=== PATIENT | female | born 1960 | race Caucasian/White ===

== ENCOUNTER 2022-06-20 08:50 | Outpatient (REF) | payer MEDICARE, SELFPAY ==
--- NOTE | ~2022-06-20 | XR_ITS ---
EXAMINATION: XR THORACOLUMBAR SPINE CLINICAL INFORMATION: M54.6 - Pain in thoracic spine COMPARISON: Chest radiographs 03/20/2007. TECHNIQUE: Thoracic spine is imaged in 3 views. FINDINGS: There are 11 rib pairs demonstrated. The 12 ribs are likely hypoplastic. There is normal thoracic kyphosis. There is a gentle levocurvature lower thoracic spine and borderline dextrocurvature midthoracic line. There is no thoracic vertebral compression, spondylolisthesis, or destructive process. No paraspinal soft tissue swelling. There are multilevel degenerative disc changes with disc narrowing and multilevel thoracic vertebral body spurring. There are also degenerative changes noted cervical spine with disc narrowing C4-C5 and C5-C6. Visualized lungs are clear. There is gastric lap band seen upper abdomen. XR/XR thoracic spine 2V IMPRESSION: -Multilevel thoracic degenerative disc changes. -No thoracic vertebral compression or spondylolisthesis or destructive process. -Degenerative disc changes cervical spine, C4-C5 and C5-C6.
[2022-06-20 11:25] LABS: Basophils Percent Auto 0.3 % (0-2); Eosinophils Absolute Auto 0.1 X10*3/uL (0.0-0.4); Eosinophils Percent Auto 0.8 % (0-4); Hematocrit 43.2 % (37.0-47.0); Hemoglobin 14.5 g/dl (12.0-16.0); Imm Gran Abs Auto 0.01 X10*3/uL (0.00-0.03); Imm Gran Pct Auto 0.2 % (0.0-0.4); Lymphocytes Absolute Auto 1.5 X10*3/uL (1.2-4.9); Lymphocytes Percent Auto 22.7 % (20-40); MANUAL DIFF FLAG NO; Mean Corpuscular HGB Conc 33.6 g/dl (31.0-35.0); Mean Corpuscular Hemoglobin 30.2 pg (27.0-33.0); Monocytes Absolute Auto 0.5 X10*3/uL (0.1-1.2); Monocytes Percent Auto 7.8 % (2-11); Neutrophils Absolute Auto 4.4 x10*3/uL (2.0-8.3); Neutrophils Percent Auto 68.2 % (45-73); Platelet Count 279 X10*3/uL (160-400); White Blood Count 6.4 X10*3/uL (4.8-10.8)
[2022-06-20 11:49] LABS: Alanine Aminotransferase 30 U/L (0-31); Albumin Level 4.3 g/dL (3.5-5.0); Alkaline Phosphatase 59 U/L (39-117); Anion Gap 17 (12-20); Aspartate Amino Transferase 21 U/L (5-31); Bilirubin Direct 0.2 mg/dL (0.0-0.5); Bilirubin Total 0.6 mg/dL (0.0-1.0); Blood Urea Nitrogen 11 mg/dL (9-16); Calcium 9.6 mg/dL (8.4-10.2); Carbon Dioxide 22 mmol/L (22-29); Chloride 107 mmol/L (96-108); Estimated Glomerular Filt Rate > 60; Glucose Random 103 mg/dL (60-115); Potassium 4.2 mmol/L (3.3-5.1); Sodium 142 mmol/L (135-145); Total Protein 7.1 g/dL (6.5-8.0)
== END 2022-06-20 08:51 | disposition home or self-care (01) ==
LOC: HO.HMGCX 08:50
PROVIDERS: PCP Internal Medicine; Visit Provider Nurse Practitioner Family
DX: M54.6 Pain in thoracic spine (principal); R10.11 Right upper quadrant pain
CPT/HCPCS: 36415; 72070; 80048; 80076; 85025

== ENCOUNTER 2022-12-19 08:20 | Outpatient (REF) | payer MEDICARE, SELFPAY ==
--- NOTE | ~2022-12-19 | XR_ITS ---
EXAMINATION: XR SHOULDER, RIGHT CLINICAL INFORMATION: Sprain of shoulder joint COMPARISON: None available. TECHNIQUE: Three views of the right shoulder. FINDINGS: Mild degenerative changes are present at the glenohumeral joint. Calcification is seen in the supraspinatus tendon. No fractures or dislocations are seen. XR/XR shoulder RT min 2V IMPRESSION: Mild degenerative changes with calcification in the supraspinatus tendon. No evidence of an acute traumatic osseous injury.
== END 2022-12-19 08:21 | disposition home or self-care (01) ==
LOC: HO.HMGCX 08:20
PROVIDERS: PCP Internal Medicine; Visit Provider Internal Medicine
DX: S43.401A Unspecified sprain of right shoulder joint, initial encounter (principal)
CPT/HCPCS: 73030

== ENCOUNTER 2023-02-14 11:28 | Outpatient (REF) | payer MEDICARE, SELFPAY ==
--- NOTE | ~2023-02-14 | MM_ITS ---
EXAMINATION: MM SCREENING DIGITAL BREAST TOMOSYNTHESIS, BILATERAL CLINICAL INFORMATION: Screening. Asymptomatic. The lifetime risk of breast cancer based on the Tyrer-Cuzick Model is 8%. COMPARISON: Outside mammography: 10/04/2019, 09/21/2020, 10/05/2019, 09/18/2019 ([facility]). TECHNIQUE: Digital breast tomosynthesis is performed in both the craniocaudal and mediolateral oblique views along with computer-aided detection (CAD). Synthesized 2D images are generated from the tomosynthesis. FINDINGS: There are scattered areas of fibroglandular density (ACR BI-RADS breast composition Category b). Breast tissue composition borders on predominantly fatty. Background stromal markings are normal. No developing density or architectural abnormality. There are no significant masses, abnormal calcifications, or other abnormalities. The axilla and skin contours are unremarkable. MM/MM tomosynthesis screening BI IMPRESSION: No mammographic evidence of malignancy. ASSESSMENT: BI-RADS 1: Negative RECOMMENDATION: Routine annual mammography screening. This patient's information was entered into a reminder system with a target due date for their next mammogram.
== END 2023-02-14 11:29 | disposition home or self-care (01) ==
LOC: HO.MAMMO 11:28
PROVIDERS: PCP Internal Medicine; Visit Provider Internal Medicine
DX: Z12.31 Encounter for screening mammogram for malignant neoplasm of breast (principal)
CPT/HCPCS: 77063; 77067

== ENCOUNTER 2023-03-29 07:48 | Outpatient (REF) | payer MEDICARE, SELFPAY | END 2023-03-29 07:49 | disposition home or self-care (01) | LOC: HO.HMGCLDS 07:48 | PROVIDERS: PCP Internal Medicine; Visit Provider Internal Medicine | DX: E03.9 Hypothyroidism, unspecified (principal); E55.9 Vitamin D deficiency, unspecified; E66.3 Overweight; R03.0 Elevated blood-pressure reading, without diagnosis of hypertension | CPT/HCPCS: 36415; 80053; 80061; 82306; 84439; 84443; 85025 ==

== ENCOUNTER 2023-05-09 12:25 | Outpatient (AMB) | payer MEDICARE, SELFPAY ==
[2023-05-09 12:32] VITALS: BP 136/68; PULSE 89; O2SAT 98; BMI 37.3
--- NOTE | 2023-05-09 12:32 | MHC.PC.OV ---
Vital Signs 05/09/23 12:32 05/09/23 13:23 Height 5 ft 6 in Weight 231 lb BMI 37.3 BP 136/68 125/75 Blood Pressure Location Lt brachial Rt brachial Position Sitting Sitting Pulse 89 Pulse Source Pulse Oximeter Pulse Oximetry (%) 98 Oxygen Delivery Method Room Air Intake Visit Reasons: 6 week follow up HTN Intake Note: Pt is here today for 6 weeks follow up visit on HTN. Allergies naproxen Adverse Reaction (Verified 05/09/23 12:34) uclers sumatriptan [From Imitrex] Adverse Reaction (Verified 05/09/23 12:34) cluster migraine Medication List - Last Reconciled 05/09/23 by Di Mccarty MD levothyroxine 25 mcg PO DAILY meloxicam 15 mg PO DAILY PRN olmesartan 5 mg PO DAILY tramadol 50 mg PO Q12H PRN Tobacco use date assessed: 03/28/23 HPI 6 week follow up HTN HPI Details Patient presents for the follow-up on hypertension hypothyroidism, stable on current medications. PFSH Surgical History H/O wrist surgery Hx of laparoscopic gastric banding Hx of tonsillectomy Family History Father No problems noted. Mother Heart attack Dementia Diabetes Social History Household Members Other:: lives with 3 roomates, , on disability for lower back pain, Housing: House Patient Tobacco Use Status: Never used Tobacco Current occupational status: disabled Cognitive needs: No Hearing needs: No Vision needs: Yes Questionnaire Thrive Questionnaire Date Thrive assessed: 01/03/23 RICKY-7 AMB Questionnaire RICKY-7 Date RICKY - 7 assessed: 01/03/23 Source: Developed by Drs. Denzel Bueno, Joanna Drew, Tristen Porter and colleagues, with an educational little from [employer]. Review of Systems Const All systems reviewed & are unremarkable except as noted in HPI and below Reports no additional complaints Eyes Reports no additional complaints ENT Reports no additional complaints Card Reports no additional complaints Resp Reports no additional complaints GI Reports no additional complaints Physical exam (Primary Care) Vital Signs: Last Vital Signs Pulse 89 05/09/23 12:32 BP 136/68 08/17/23 12:32 Pulse Ox 98 05/09/23 12:32 Oxygen Delivery Method Room Air 05/09/23 12:32 BMI result Body Mass Index 37.3 Tobacco/Smoking Status: Tobacco use Status Tobacco use date assessed 03/28/23 05/09/23 12:36 Patient Tobacco Use Status Never used Tobacco 05/09/23 12:36 Thrive Assessment: Date of Thrive Assessment Date Thrive assessed 01/03/23 05/09/23 12:36 Const General: no acute distress Eyes General: appearance normal, both eyes and all related structures Resp Effort & Inspection: normal respiratory effort Auscultation: clear to auscultation bilaterally Cardio Rhythm: regular rhythm Heart sounds: S1 normal heart sound present and S2 normal heart sound present Assessment and Plan Assessment & Plan (1) Hypothyroidism: Code(s): E03.9 - Hypothyroidism, unspecified Plan: Continue levothyroxine check TSH today (2) Hypertension: Code(s): I10 - Essential (primary) hypertension Plan: Continue olmesartan low-sodium diet regular exercise and follow-up in 3 months Orders: Orders Basic Metabolic Panel Today E03.9 - Hypothyroidism, unspecified TSH reflex Free T4 Today E03.9 - Hypothyroidism, unspecified Coding Level of Care Code Est Pt Level 3 (00950) Diagnoses Hypothyroidism E03.9 Hypertension I10
[2023-05-09 13:23] VITALS: BP 125/75
== END 2023-05-09 13:25 | disposition home or self-care (01) ==
LOC: HO.HMGC 12:26
PROVIDERS: PCP Internal Medicine; Visit Provider Internal Medicine
DX: E03.9 Hypothyroidism, unspecified (principal); I10 Essential (primary) hypertension
CPT/HCPCS: 99213

== ENCOUNTER 2023-05-09 13:26 | Outpatient (REF) | payer MEDICARE, SELFPAY ==
[2023-05-09 16:43] LABS: Anion Gap 12 (12-20); Blood Urea Nitrogen 14 mg/dL (9-16); Calcium 9.3 mg/dL (8.4-10.2); Carbon Dioxide 25 mmol/L (22-29); Chloride 112 mmol/L (96-108); Estimated Glomerular Filt Rate 52; Glucose Random 96 mg/dL (60-115); Sodium 145 mmol/L (135-145)
[2023-05-09 17:01] LABS: TSH reflex Free T4 2.02 uIU/mL (0.32-4.0)
== END 2023-05-09 13:27 | disposition home or self-care (01) ==
LOC: HO.HMGCLDS 13:26
PROVIDERS: PCP Internal Medicine; Visit Provider Internal Medicine
DX: E03.9 Hypothyroidism, unspecified (principal)
CPT/HCPCS: 36415; 80048; 84443

== ENCOUNTER 2023-07-12 08:37 | Outpatient (AMB) | payer MEDICARE, SELFPAY ==
[2023-07-12 08:38] VITALS: BP 128/62; PULSE 84; O2SAT 97; BMI 37.5
--- NOTE | 2023-07-12 08:38 | A.OFFPC_ITS ---
Vital Signs 07/12/23 08:38 Height 5 ft 6 in Weight 232 lb 4 oz BMI 37.5 BP 128/62 Blood Pressure Location Lt brachial Position Sitting Pulse 84 Pulse Source Pulse Oximeter Pulse Oximetry (%) 97 Oxygen Delivery Method Room Air Intake Visit Reasons: BP Check Allergies naproxen Adverse Reaction (Verified 07/12/23 08:40) uclers sumatriptan [From Imitrex] Adverse Reaction (Verified 07/12/23 08:40) cluster migraine Medication List - Last Reconciled 07/12/23 by Bonnie Lerma MD levothyroxine 25 mcg PO DAILY meloxicam 15 mg PO DAILY PRN olmesartan 5 mg PO DAILY tramadol 50 mg PO Q12H PRN Tobacco use date assessed: 07/12/23 Fall risk assessment: 1 Fall in past year Last assessed Fall Risk: 07/12/23 Dental Screening Dental Screen Date: 07/12/23 Did you have a dental visit in the last 12 months?: No Did you have a dental problem in the last 6 months where you did not have access to dental care?: No Was dental information given to patient?: Patient has dentist HPI BP Check HPI Details 63-year-old female came in today with co nczenia of her blood pressure She is on olmesartan 5 mg, tolerating medications, no side effects Patient donate plasma 2 times a week, last time she was there her blood pressure was 150 with heart rate of 106 so she could not donate She got worried and came in for blood pressure check. Patient says that she is concerned that she might have stroke if her blood pressure is very high. She did bought a blood pressure monitor which was not working properly so she returned it. Currently patient does not have a monitor at home. She does have appointment with primary care coming up next month. Last time patient had labs was March, reviewed with the patient. At this time I have reassured patient that her blood pressure is within normal limit today 128/62, with normal heart rate and oxygen saturation There is no need to worry, however she should lose some weight her BMI is elevated at 37.5 And avoid salty diet. PFSH Surgical History H/O wrist surgery Hx of tonsillectomy Hx of laparoscopic gastric banding Family History Father No problems noted. Mother Heart attack Dementia Diabetes Social History Household Members Other:: lives with 3 roomates, , on disability for lower back pain, Housing: House Patient Tobacco Use Status: Never used Tobacco e-Cigarette/Vaping Use: Never Used service: No Current occupational status: disabled Cognitive needs: No Hearing needs: No Vision needs: Yes Questionnaire PHQ-9 Over the last 2 weeks, how often have you been bothered by any of the following problems? 1. Little interest or pleasure in doing things: not at all 2. Feeling down, depressed, or hopeless: several days 3. Trouble falling or staying asleep, or sleeping too much: several days 4. Feeling tired or having little energy: several days 5. Poor appetite or overeating: not at all 6. Feeling bad about yourself - or that you are a failure or have let yourself or your family down: not at all 7. Trouble concentrating on things, such as reading the newspaper or watching television: not at all 8. Moving or speaking so slowly that other people could have noticed. Or the opposite - being so fidgety or restless that you have been moving around a lot more than usual: not at all 9. Thoughts that you would be better off or of hurting yourself in some way: not at all Total score: 3 Depression Screening Interpretation: Negative Depression Screening Done: Yes 29150 - PHQ-9 Billing: Yes Source: Developed by Drs. Denzel Bueno, Joanna Drew, Tristen Porter and colleagues, with an educational little from [employer]. Thrive Questionnaire Date Thrive assessed: 07/12/23 I am a: Patient What is your living situation today?: I have a steady place to live Within the past 12 months, did the food you bought not last and you didn't have the money to get more?: Often true Within the past 12 months, did you worry whether your food would run out before you got money to buy more?: Often true Do you have trouble paying for medicines?: No Do you have trouble getting transportation to medical appointments?: No Do you have trouble paying your heating and electricity bill?: No Do you have trouble taking care of your child, family member or friend?: No Do you have trouble with day-to-day activities such as bathing, preparing meals, shopping, managing finances, etc.?: No Are you currently unemployed and looking for a job?: No Are you interested in more education?: No AUDIT C Alcohol Use Questionnaire (AUDIT-C) 1. How often do you have a drink containing alcohol?: Never 3. How often do you have six or more drinks on one occasion?: Never Total Score: 0 Score Reviewed/Action Taken: Yes RICKY-7 AMB Questionnaire RICKY-7 Date RICKY - 7 assessed: 07/12/23 Feeling nervous, anxious, or on edge: 1 = Several days Not being able to stop or control worryin = Several days Worrying too much about different things: 1 = Several days Trouble relaxin = Several days Being so restless that it is hard to sit still: 0 = Not at all Becoming easily annoyed or irritable: 0 = Not at all Feeling afraid as if something awful might happen: 1 = Several days Total RICKY-7 score (0-4 normal; 5-9 mild; 10-14 moderate; 15-21 severe): 5 Source: Developed by Drs. Denzel Bueno, Joanna Drew, Tristen Porter and colleagues, with an educational little from [employer]. RICKY-7 Assessment Billing RICKY-7 Assessment Tool: RICKY-7 Assessment 76152 Review of Systems Const Denies chills and Denies fever(s) ENT Denies epistaxis and Denies nasal discharge Card Denies chest pain Resp Denies chest congestion, Denies cough and Denies hemoptysis GI Denies diarrhea and Denies nausea Skin/Breast Denies rash Neuro Reports no additional complaints Psych Reports no additional complaints Endo Reports no additional complaints Physical exam (Primary Care) Vital Signs: Last Vital Signs Pulse 84 07/12/23 08:38 BP 128/62 07/12/23 08:38 Pulse Ox 97 07/12/23 08:38 Oxygen Delivery Method Room Air 07/12/23 08:38 BMI result Body Mass Index 37.5 Tobacco/Smoking Status: Tobacco use Status Tobacco use date assessed 07/12/23 07/12/23 08:42 Patient Tobacco Use Status Never used Tobacco 07/12/23 08:42 e-Cigarette/Vaping Use Never Used 07/12/23 08:42 PHQ-9: PHQ-9 Score PHQ-9: Total score 3 07/12/23 09:06 Depression Screening Interpretation: Negative Thrive Assessment: Date of Thrive Assessment Date Thrive assessed 07/12/23 07/12/23 09:06 Const General: cooperative, comfortable and no acute distress Orientation/consciousness: patient oriented x3 HENMT Head: Yes normocephalic Eyes General: appearance normal, both eyes and all related structures Neck Neck: Yes supple Resp Effort & Inspection: normal respiratory effort, no cough and no stridor Cardio Rhythm: regular rhythm Heart sounds: S1 normal heart sound present and S2 normal heart sound present Skin General skin exam: turgor normal Neuro General: patient oriented x3, tone normal and moves all extremities Extrem Right lower extremity: no edema Left lower extremity: no edema Assessment and Plan Assessment & Plan (1) Hypertension, essential: Code(s): I10 - Essential (primary) hypertension (2) Obesity due to excess calories: Code(s): E66.09 - Other obesity due to excess calories Qualifiers: Body mass index: BMI 37.0-37.9 Obesity classification: adult class 2 (B NE 35 - 39.9) Serious obesity comorbidity presence: with serious comorbidity Qualified Code(s): E66.01 - Morbid (severe) obesity due to excess calories; Z68.37 - Body mass index [BMI] 37.0-37.9, adult (3) Anxiety about health: Code(s): F41.8 - Other specified anxiety disorders Plan 63-year-old female came in today with concerns of her blood pressure She is on olmesartan 5 mg, tolerating medications, no side effects Patient donate plasma 2 times a week, last time she was there her blood pressure was 150 with heart rate of 106 so she could not donate She got worried and came in for blood pressure check. Patient says that she is concerned that she might have stroke if her blood pressure is very high. She did bought a blood pressure monitor which was not working properly so she returned it. Currently patient does not have a monitor at home. She does have appointment with primary care coming up next month. Last time patient had labs was March, reviewed with the patient. At this time I have reassured patient that her blood pressure is within normal limit today 128/62, with normal heart rate and oxygen saturation There is no need to worry, however she should lose some weight her BMI is elevated at 37.5 And avoid salty diet. Coding Level of Care Code Est Pt Level 3 (98839) Diagnoses Hypertension, essential I10 Class 2 severe obesity due to excess calories with serious comorbidity and body mass index (BMI) of 37.0 to 37.9 in adult E66.01; Z68.37 Body mass index: BMI 37.0-37.9 Obesity classification: adult class 2 (BMI 35 - 39.9) Serious obesity comorbidity presence: with serious comorbidity Anxiety about health F41.8 Additional Codes RICKY-7 Assessment Billing - RICKY-7 Assessment Tool: RICKY-7 Assessment [id number] ([id number])
== END 2023-07-12 11:31 | disposition home or self-care (01) ==
PROVIDERS: PCP Internal Medicine; Visit Provider Internal Medicine
DX: I10 Essential (primary) hypertension (principal); E66.01 Morbid (severe) obesity due to excess calories; Z68.37 Body mass index [BMI] 37.0-37.9, adult; F41.8 Other specified anxiety disorders
CPT/HCPCS: 99213

== ENCOUNTER 2023-09-26 09:46 | Outpatient (REF) | payer MEDICARE, SELFPAY | END 2023-09-26 09:47 | disposition home or self-care (01) | LOC: HO.HMGCLDS 09:46 | PROVIDERS: PCP Internal Medicine; Visit Provider Internal Medicine | DX: I10 Essential (primary) hypertension (principal); E03.9 Hypothyroidism, unspecified | CPT/HCPCS: 36415; 80053; 80061; 84443 ==

== ENCOUNTER 2024-02-20 08:57 | Outpatient (REF) | payer MEDICARE, SELFPAY | END 2024-02-20 08:58 | disposition home or self-care (01) | LOC: HO.MAMMO 08:57 | PROVIDERS: PCP Internal Medicine; Visit Provider Internal Medicine | DX: Z12.31 Encounter for screening mammogram for malignant neoplasm of breast (principal) | CPT/HCPCS: 77063; 77067 ==

== ENCOUNTER → 2024-02-20 09:15 | Outpatient (BNV) | payer MEDICARE, SELFPAY | PROVIDERS: PCP Internal Medicine; Visit Provider Radiology Diagnostic Radiology | DX: Z12.31 Encounter for screening mammogram for malignant neoplasm of breast (principal) | CPT/HCPCS: 77063; 77067 ==

== ENCOUNTER 2024-03-04 10:50 | Outpatient (AMB) | payer MEDICARE, MEDICAID, SELFPAY ==
[2024-03-04 10:49] VITALS: BP 150/70; PULSE 94; TEMP 36.3; O2SAT 98; BMI 39.4
--- NOTE | 2024-03-04 10:49 | MHC.OFFWIV ---
Intake Vital Signs 03/04/24 10:49 Height 5 ft 6 in Weight 244 lb BMI 39.4 BP 150/70 H Blood Pressure Location Lt brachial Position Sitting Pulse 94 Pulse Source Pulse Oximeter Temp 97.3 F Temp Source Temporal Artery Scan Pulse Oximetry (%) 98 Oxygen Delivery Method Room Air Intake Visit Reasons: EP muscle weakness/Injury to back Intake Note: pt is here today for muscle weakness injury to back started Patient Tobacco Use Status: Never used Tobacco Allergies naproxen Adverse Reaction (Verified 03/04/24 10:56) uclers sumatriptan [From Imitrex] Adverse Reaction (Verified 03/04/24 10:56) cluster migraine Do you need a note to return to daycare/school/sports/work: Yes HPI HPI Comments History of Present Illness Details Patient is a 63-year-old female with a past medical history of herniated discs and full-body arthritis who is here complaining of low back pain and bilateral leg weakness. She states she has had multiple injuries, she slipped on the ice in August and sprained her right wrist and injured her low back. Then 2 months ago she was putting an air conditioner on a window and she felt low back pain. Since then, she has had bilateral leg weakness, she denies any changes to her baseline numbness and tingling. She denies any loss of control of her bladder or bowels. She does endorse some fatigue. She sees pain management and she has a prescription for meloxicam and tramadol which she has been taking on and off. She is also tried taking gummies but they wiped out too much. She describes the pain as in her mid to lower back like a horse stepping on it but denies any sharpness or shooting pains. It is worse with movement and better with sitting. [facility], [facility] Surgical History H/O wrist surgery Hx of tonsillectomy Hx of laparoscopic gastric banding Family History Father No problems noted. Mother Heart attack Dementia Diabetes Social History Household Members Other:: lives with 3 roomates, , on disability for lower back pain, Housing: House Patient Tobacco Use Status: Never used Tobacco e-Cigarette/Vaping Use: Never Used service: No Current occupational status: disabled Cognitive needs: No Hearing needs: No Vision needs: Yes Review of Systems Const All systems reviewed & are unremarkable except as noted in HPI and below Physical Exam Vital Signs: Last Vital Signs Temp 97.3 F 03/04/24 10:49 Pulse 94 03/04/24 10:49 BP 150/70 H 03/04/24 10:49 Pulse Ox 98 03/04/24 10:49 Oxygen Delivery Method Room Air 03/04/24 10:49 BMI result Body Mass Index 39.4 Const General: cooperative, healthy appearing, comfortable, no acute distress and well developed Orientation/consciousness: patient oriented x3 Limitations: no limitations HEENT Head: Yes normal to inspection Eyes General: appearance normal, both eyes and all related structures Neck Neck: Yes normal visual inspection and Yes full ROM Resp Effort & Inspection: normal respiratory effort and able to speak in complete sentences Back/Spine/Pelvis Cervical Spine: cervical ROM normal and No Cervical spine tenderness Thoracic/Lumbar Spine: thoracic and lumbar spine normal to inspection, thoraco-lumbar ROM normal (Although with some pain), bend over test abnormal, No paraspinal muscle tenderness, No thoraco-lumbar ROM limited, No thoraco-lumbar spasm, No thoracic spinal tenderness and No lumbar spinal tenderness Skin General skin exam: no rashes or lesions noted Neuro General: patient oriented x3 Extrem General: Yes normal to inspection Assessment & Plan Assessment & Plan (1) Lower back pain: Comment: f/u Dr. Mcclendon prescribes Tramadol Code(s): M54.50 - Low back pain, unspecified Plan: Recommended using Voltaren gel as well as her meloxicam, ice and rest. Will send to orthopedics referral. Patient already has follow-up scheduled in March with Dr. Mccarty. Plan See above Orders: Referrals Orthopedics Referral M54.50 - Low back pain, unspecified Coding Level of Care Code Est Pt Level 3 (35715) Diagnoses Lower back pain M54.50
== END 2024-03-04 12:49 | disposition home or self-care (01) ==
PROVIDERS: PCP Internal Medicine; Visit Provider Physician Assistant
DX: M54.50 Low back pain, unspecified (principal)
CPT/HCPCS: 99213

== ENCOUNTER 2024-03-30 08:55 | Outpatient (AMB) | payer MEDICARE, SELFPAY ==
[2024-03-30 09:11] VITALS: BP 136/74; PULSE 83; O2SAT 98; BMI 39.7
--- NOTE | 2024-03-30 09:11 | MHC.PC.OV ---
Vital Signs 03/30/24 09:11 Height 5 ft 6 in Weight 246 lb BMI 39.7 BP 136/74 Blood Pressure Location Lt brachial Position Sitting Pulse 83 Pulse Source Pulse Oximeter Pulse Oximetry (%) 98 Oxygen Delivery Method Room Air Intake Visit Reasons: Arm pain post fall Intake Note: Pt is here today c/o bilateral knee pain and lower back pain due to having lifting air conditioner Allergies naproxen Adverse Reaction (Verified 03/30/24 09:12) uclers sumatriptan [From Imitrex] Adverse Reaction (Verified 03/30/24 09:12) cluster migraine Medication List - Last Reconciled 03/30/24 by Di Mccarty MD levothyroxine 25 mcg PO DAILY meloxicam 15 mg PO DAILY PRN olmesartan 5 mg PO DAILY tramadol 50 mg PO Q12H PRN Tobacco use date assessed: 03/30/24 Fall risk assessment: 1 Fall in past year Last assessed Fall Risk: 03/30/24 Dental Screening Dental Screen Date: 03/30/24 Did you have a dental visit in the last 12 months?: No Was dental information given to patient?: Patient has dentist HPI Arm pain post fall HPI Details Pt presents for f/u hypothyroid and HTN. Pt chronic lower back pain getting worse since a fall last month and has an appointment scheduled with the Orthopedics. Patient has been gaining weight, stress eating and also having less income and not able to afford quality foods. [facility] Surgical History H/O wrist surgery Hx of tonsillectomy Hx of laparoscopic gastric banding Family History Father No problems noted. Mother Heart attack Dementia Diabetes Social History Household Members Other:: lives with 3 roomates, , on disability for lower back pain, Housing: House Patient Tobacco Use Status: Never used Tobacco e-Cigarette/Vaping Use: Never Used service: No Current occupational status: disabled Cognitive needs: No Hearing needs: No Vision needs: Yes Questionnaire Thrive Questionnaire Date Thrive assessed: 07/12/23 AUDIT C Alcohol Use Questionnaire (AUDIT-C) 1. How often do you have a drink containing alcohol?: Monthly or less 2. How many drinks containing alcohol do you have on a typical day when you are drinking?: 1 or 2 3. How often do you have six or more drinks on one occasion?: Never Total Score: 1 RICKY-7 AMB Questionnaire RICKY-7 Date RICKY - 7 assessed: 07/12/23 Source: Developed by Drs. Denzel Bueno, Joanna Drew, Tristen Porter and colleagues, with an educational little from [employer]. Review of Systems Const All systems reviewed & are unremarkable except as noted in HPI and below Reports no additional complaints Eyes Reports no additional complaints ENT Reports no additional complaints Card Reports no additional complaints Resp Reports no additional complaints GI Reports no additional complaints Reports no additional complaints Musc Reports no additional complaints Physical exam (Primary Care) Vital Signs: Last Vital Signs Pulse 83 03/30/24 09:11 BP 154/74 H 03/30/24 09:11 Pulse Ox 98 03/30/24 09:11 Oxygen Delivery Method Room Air 03/30/24 09:11 BMI result Body Mass Index 39.7 Tobacco/Smoking Status: Tobacco use Status Tobacco use date assessed 03/30/24 03/30/24 09:14 Patient Tobacco Use Status Never used Tobacco 03/30/24 09:14 e-Cigarette/Vaping Use Never Used 03/30/24 09:14 Thrive Assessment: Date of Thrive Assessment Date Thrive assessed 07/12/23 03/30/24 09:14 Const General: no acute distress HENMT Head: Yes normal to inspection Resp Effort & Inspection: normal respiratory effort Auscultation: clear to auscultation bilaterally Cardio Rhythm: regular rhythm Heart sounds: S1 normal heart sound present and S2 normal heart sound present GI Inspection: Yes normal to inspection Assessment and Plan Assessment & Plan (1) Overweight: Code(s): E66.3 - Overweight Plan: Increase physical activity decrease caloric intake weight loss discussed with the patient. (2) Hypothyroidism: Code(s): E03.9 - Hypothyroidism, unspecified Plan: Continue levothyroxine check TSH (3) Vitamin D deficiency: Code(s): E55.9 - Vitamin D deficiency, unspecified Plan: Continue vitamin-D supplement (4) Hypertension: Code(s): I10 - Essential (primary) hypertension Plan: Change olmesartan to 80 mg of valsartan. Low-sodium diet increase physical activity weight loss discussed with the patient follow-up in 2 months. Patient will have fasting labs in 2 weeks (5) Lower back pain: Comment: f/u Dr. Mcclendon prescribes Tramadol Code(s): M54.50 - Low back pain, unspecified Plan: Patient will follow-up with orthopedics and pain management Orders: Orders Complete Blood Count Auto Diff 2 Weeks E03.9 - Hypothyroidism, unspecified, E55.9 - Vitamin D deficiency, unspecified, E66.3 - Overweight, I10 - Essential (primary) hypertension TSH reflex Free T4 2 Weeks E03.9 - Hypothyroidism, unspecified, E55.9 - Vitamin D deficiency, unspecified, E66.3 - Overweight, I10 - Essential (primary) hypertension UA w Microscopic 2 Weeks E03.9 - Hypothyroidism, unspecified, E55.9 - Vitamin D deficiency, unspecified, E66.3 - Overweight, I10 - Essential (primary) hypertension Comprehensive [place]. Panel Fast 2 Weeks E03.9 - Hypothyroidism, unspecified, E55.9 - Vitamin D deficiency, unspecified, E66.3 - Overweight, I10 - Essential (primary) hypertension Lipid Panel 2 Weeks E03.9 - Hypothyroidism, unspecified, E55.9 - Vitamin D deficiency, unspecified, E66.3 - Overweight, I10 - Essential (primary) hypertension Medications: New valsartan 80 mg PO DAILY 90 tabs 2RF Refilled levothyroxine 25 mcg PO DAILY 90 tabs 3RF Discontinued olmesartan Discontinued Reason: Doctor's Order 5 mg PO DAILY 90 tabs 1RF Coding Level of Care Code Est Pt Level 4 (68596) Diagnoses Overweight E66.3 Hypothyroidism E03.9 Vitamin D deficiency E55.9 Hypertension I10 Lower back pain M54.50
== END 2024-03-30 09:45 | disposition home or self-care (01) ==
PROVIDERS: PCP Internal Medicine; Visit Provider Internal Medicine
DX: E03.9 Hypothyroidism, unspecified (principal); E66.3 Overweight; Z68.39 Body mass index [BMI] 39.0-39.9, adult; E55.9 Vitamin D deficiency, unspecified; I10 Essential (primary) hypertension; M54.50 Low back pain, unspecified
CPT/HCPCS: 99214

== ENCOUNTER 2024-04-09 08:05 | Outpatient (AMB) | payer MEDICARE, MEDICAID, SELFPAY ==
--- NOTE | 2024-04-09 08:07 | A.OFFVIS_ITS ---
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 Pt has a past medical history of herniated discs and full-body arthritis. Pt states I am having pain from my neck to me knees 15 years ago she had lumbar spine and hip injections which helped only temporarily. In august she slipped on a ramp and fell over the edge landing on the right side of her body and about 2-3 months ago she was putting an AC unit in her window when she felt a sudden pain in her lower back . Since then she complains of chronic back pain, weakness and numbness/tingling down the left leg. Her symptoms are affecting her ADOL. she is taking Meloxicam PRN, Tramadol Q12H these do offer releif. Allergies naproxen Adverse Reaction (Verified 04/09/24 08:15) uclers sumatriptan [From Imitrex] Adverse Reaction (Verified 04/09/24 08:15) cluster migraine Medication List - Last Reconciled 04/09/24 by Rachel Lord MD levothyroxine 25 mcg PO DAILY meloxicam 15 mg PO DAILY PRN tramadol 50 mg PO Q12H PRN valsartan 80 mg PO DAILY HPI Comments Details: He follows with Dr. Mcclendon for chronic pain, last seen in September. She had a fall/slip in September. She was supposed to have MRI lumbar (hasnt had one for 10 years) but it was denied by insurance. More than 10 years ago, had caudal injection, can't remember what kind exactly. Lifted an AC few months ago. Been having muscle weakness whole body, but started on her legs. Back pain lower, midline, feels it's like twisting. Worse with prolonged standing, feels that she might collapse. Can only walk 10 feet before she feels weaker. Owns a walker. She has new PCP Dr. Mccarty. On Tramadol prescribed by Dr. Mcclendon. No recent PT. She also has chronic neck pain hand numbness. History of vertigo. [facility] Surgical History H/O wrist surgery Hx of tonsillectomy Hx of laparoscopic gastric banding Family History Father No problems noted. Mother Heart attack Dementia Diabetes Social History Household Members Other:: lives with 3 roomates, , on disability for lower back pain, Housing: House Patient Tobacco Use Status: Never used Tobacco e-Cigarette/Vaping Use: Never Used service: No Current occupational status: disabled Cognitive needs: No Hearing needs: No Vision needs: Yes Review of Systems Const All systems reviewed & are unremarkable except as noted in HPI and below Physical Exam Vital Signs: BMI result Body Mass Index 39.7 Constitutional: Patient appears to be in no acute distress, well nourished and well developed. Patient was appropriately conversant and oriented. Good historian. MSK: No specific abnormalities found on inspection of the spine and all extremities. No pain with palpation over the lumbar area. No tenderness in SI. Mild tenderness in GT. Lumbar ROM was full. Bilateral hip, knee and ankle ROM WNL. No ligamentous laxity or crepitance. No increased effusion. Straight-leg raising test positive bilateral. FABERE test positive bilateral. Strength is 5/5 in all muscle groups tested. No increased tone noted. Neurological: Neurologic examination of the upper and lower extremities was nonfocal with intact sensation, muscle stretch reflexes and without focal motor deficits . Melendez?s negative bilaterally. Babinski was down going bilaterally. Clonus was negative. Gait is non-antalgic without loss of balance. Results Reviewed Results Reviewed: I reviewed records from the following: PCP Assessment & Plan Assessment & Plan (1) Lower back pain: Comment: f/u Dr. Mcclendon prescribes Tramadol Code(s): M54.50 - Low back pain, unspecified Category: Medical Qualifiers: Chronicity: chronic Back pain laterality: midline Sciatica presence: with sciatica Sciatica laterality: bilateral sciatica Qualified Code(s): M54.41 - Lumbago with sciatica, right side; M54.42 - Lumbago with sciatica, left side; G89.29 - Other chronic pain (2) Neurogenic claudication: Code(s): R29.818 - Other symptoms and signs involving the nervous system Category: Medical Plan Chronic back pain, chronic pain syndrome. However since September, she has been manifesting possible claudication symptoms. Possible lumbar spinal stenosis. We will do cervical, thoracic and lumbar x-rays today. Referring her to PT for core strength, leg strength, gait training. We may need to reorder the lumbar MRI if not improved with PT. Advised that it may be in her best interest to return to Dr. Mcclendon as he is the 1 prescribing tramadol and he can perform injections. Patient says she will check with insurance. If she transfers care to [place], discussed that I can not continue chronic pain medications for her. And also for injections, it will be a referral to pain management. Assessment and plan discussed with patient, and patient was agreeable. All questions were answered thoroughly. Follow up 1 month. Rachel Lord MD, MARI Board Certified, [place] [employer] and Rehabilitation (ABPMR) Board Certified, [place] [employer] Electrodiagnostic Medicine (ABEM) Orders: Orders XR lumbar spine 2-3V Today M54.9 - Dorsalgia, unspecified XR thoracic spine 2V Today M54.50 - Low back pain, unspecified PT Evaluation and Treatment Today M54.50 - Low back pain, unspecified, R29.818 - Other symptoms and signs involving the nervous system XR cervical spine 3V Today M54.2 - Cervicalgia Coding Level of Care Code New Pt Level 4 (66919) Diagnoses Chronic midline low back pain with bilateral sciatica M54.41; M54.42; G89.29 Chronicity: chronic Back pain laterality: midline Sciatica presence: with sciatica Sciatica laterality: bilateral sciatica Neurogenic claudication R29.818
[2024-04-09 08:08] VITALS: BMI 39.7
== END 2024-04-09 10:05 | disposition home or self-care (01) ==
PROVIDERS: PCP Internal Medicine; Visit Provider Physical Medicine & Rehabilitation
DX: M54.41 Lumbago with sciatica, right side (principal); M54.42 Lumbago with sciatica, left side; G89.29 Other chronic pain; R29.818 Other symptoms and signs involving the nervous system
CPT/HCPCS: 99203

== ENCOUNTER 2024-04-09 08:05 | Outpatient (REF) | payer MEDICARE, MEDICAID, SELFPAY ==
--- NOTE | ~2024-04-09 | XR_ITS ---
EXAMINATION: XR CERVICAL SPINE CLINICAL INFORMATION: Cervicalgia COMPARISON: None available. TECHNIQUE: 3 views of the cervical spine were obtained. FINDINGS: There is straightening of cervical lordosis with narrowing cough C4-C5, C5-C6 and C6-C7 intervertebral disc spaces. Pedicles are preserved there is uncovertebral osteophytosis seen at the same level also. Soft tissues unremarkable XR/XR cervical spine 3V IMPRESSION: Degenerative changes at the level of C4-C7
--- NOTE | ~2024-04-09 | XR_ITS ---
EXAMINATION: XR LUMBOSACRAL SPINE CLINICAL INFORMATION: Low back pain COMPARISON: None available. TECHNIQUE: Three views of the lumbosacral spine. FINDINGS: Vertebral bodies are well aligned and intervertebral discs are preserved except of narrowing cough L4-L5 and L5-S1 with grade 1 anterior listhesis. Pedicles are preserved and sacroiliac joint is unremarkable. XR/XR lumbar spine 2-3V IMPRESSION: Degenerative changes at the level of L4-L5 and L5-S1 with grade 1 anterior listhesis
--- NOTE | ~2024-04-09 | XR_ITS ---
EXAMINATION: XR THORACOLUMBAR SPINE CLINICAL INFORMATION: Low back COMPARISON: None available. TECHNIQUE: AP and lateral views of thoracic spine FINDINGS: There are multilevel degenerative changes with features of degenerative spondylosis, with marginal spurring. Pedicles are preserved. Soft XR/XR thoracic spine 2V tissues are unremarkable and there is mild levoscoliosis. IMPRESSION: Multilevel degenerative spondylosis
== END 2024-04-09 08:06 | disposition home or self-care (01) ==
LOC: HO.HOSX 08:05
PROVIDERS: PCP Internal Medicine; Visit Provider Physical Medicine & Rehabilitation
DX: M54.9 Dorsalgia, unspecified (principal); M54.2 Cervicalgia; M54.41 Lumbago with sciatica, right side; M54.42 Lumbago with sciatica, left side; G89.29 Other chronic pain; R29.818 Other symptoms and signs involving the nervous system
CPT/HCPCS: 72040; 72070; 72100; 99202

== ENCOUNTER 2024-05-11 09:51 | Outpatient (REF) | payer MEDICARE, MEDICAID, SELFPAY ==
[2024-05-11 13:11] LABS: MANUAL DIFF FLAG NO
[2024-05-11 13:28] LABS: Appearance Urine Cloudy; Color Urine Yellow; Glucose Urine UA Negative (Negative); Leukocyte Esterase Urine Trace (Negative); Nitrite Urine Negative (Negative); PH 5.5 (5.0-9.0); Specific Gravity - Urine 1.015 (1.005-1.025); UMIC TRIGGER UA YES; Urine Blood Negative (Negative); Urine Ketones Negative (Negative); Urine Protein Negative (Neg-Trace)
[2024-05-11 13:30] LABS: Basophils Percent Auto 0.7 % (0-2); Eosinophils Absolute Auto 0.2 X10*3/uL (0.0-0.4); Eosinophils Percent Auto 3.1 % (0-4); Hematocrit 42.9 % (37.0-47.0); Hemoglobin 14.5 g/dl (12.0-16.0); Imm Gran Abs Auto 0.01 X10*3/uL (0.00-0.03); Imm Gran Pct Auto 0.2 % (0.0-0.4); Lymphocytes Absolute Auto 1.9 X10*3/uL (1.2-4.9); Lymphocytes Percent Auto 33.9 % (20-40); Mean Corpuscular HGB Conc 33.8 g/dl (31.0-35.0); Mean Corpuscular Hemoglobin 31.1 pg (27.0-33.0); Mean Corpuscular Volume 92.1 fL (80.0-98.0); Mean Platelet Volume 9.3 fL (9.4-12.3); Monocytes Absolute Auto 0.5 X10*3/uL (0.1-1.2); Monocytes Percent Auto 9.7 % (2-11); Neutrophils Absolute Auto 2.9 x10*3/uL (2.0-8.3); Neutrophils Percent Auto 52.4 % (45-73); Platelet Count 252 X10*3/uL (160-400); Red Blood Count 4.66 X10*6/uL (4.20-5.50); Red Cell Distribution Width 13.2 % (11.0-16.0); White Blood Count 5.6 X10*3/uL (4.8-10.8)
[2024-05-11 13:32] LABS: Bacteria Urine 1+ (None Seen); Hyaline Casts Urine 0-2 /LPF (0-2); RBC Urine 0-2 /HPF (0-2)
[2024-05-11 13:57] LABS: Alanine Aminotransferase 32 U/L (0-31); Albumin Level 3.6 g/dL (3.5-5.0); Alkaline Phosphatase 39 U/L (39-117); Anion Gap 9 (12-20); Aspartate Amino Transferase 26 U/L (5-31); Bilirubin Total 0.4 mg/dL (0.0-1.0); Blood Urea Nitrogen 13 mg/dL (9-16); Calcium 8.9 mg/dL (8.4-10.2); Carbon Dioxide 26 mmol/L (22-29); Chloride 110 mmol/L (96-108); Cholesterol 222 mg/dL (<200); Estimated Glomerular Filt Rate > 60; Glucose Fasting 87 mg/dL (60-99); HDL Cholesterol 52 mg/dL (>40); LDL Cholesterol Calculated 150 mg/dL (<100); Potassium 4.2 mmol/L (3.3-5.1); Sodium 141 mmol/L (135-145); Total Protein 5.9 g/dL (6.5-8.0); Triglycerides 101 mg/dL (<150)
[2024-05-11 14:02] LABS: TSH reflex Free T4 5.24 uIU/mL (0.32-4.0)
[2024-05-11 14:43] LABS: Free T4 (Free Thyroxine) 0.78 ng/dL (0.71-1.85)
== END 2024-05-11 09:52 | disposition home or self-care (01) ==
LOC: HO.HMGCLDS 09:51
PROVIDERS: PCP Internal Medicine; Visit Provider Internal Medicine
DX: I10 Essential (primary) hypertension (principal); E55.9 Vitamin D deficiency, unspecified; E03.9 Hypothyroidism, unspecified; E66.3 Overweight
CPT/HCPCS: 36415; 80053; 80061; 81001; 84439; 84443; 85025

== ENCOUNTER 2024-05-13 11:19 | Outpatient (AMB) | payer MEDICARE, MEDICAID, SELFPAY ==
--- NOTE | 2024-05-13 11:52 | MHC.OFFWIV ---
Intake Intake Visit Reasons: BackPain Patient Tobacco Use Status: Never used Tobacco Allergies naproxen Adverse Reaction (Verified 04/09/24 08:15) uclers sumatriptan [From Imitrex] Adverse Reaction (Verified 04/09/24 08:15) cluster migraine PFSH Surgical History H/O wrist surgery Hx of tonsillectomy Hx of laparoscopic gastric banding Family History Father No problems noted. Mother Heart attack Dementia Diabetes Social History Household Members Other:: lives with 3 roomates, , on disability for lower back pain, Housing: House Patient Tobacco Use Status: Never used Tobacco e-Cigarette/Vaping Use: Never Used service: No Current occupational status: disabled Cognitive needs: No Hearing needs: No Vision needs: Yes Coding
[2024-05-13 11:54] VITALS: BP 126/78; PULSE 81; O2SAT 98; BMI 39.9
--- NOTE | 2024-05-13 11:57 | MHC.PC.OV ---
Vital Signs 05/13/24 11:54 Height 5 ft 6 in Weight 247 lb BMI 39.9 BP 126/78 Blood Pressure Location Rt brachial Position Sitting Pulse 81 Pulse Source Pulse Oximeter Pulse Oximetry (%) 98 Oxygen Delivery Method Room Air Intake Visit Reasons: BackPain Intake Note: Patient here to f/u on labs. Allergies naproxen Adverse Reaction (Verified 05/13/24 11:57) uclers sumatriptan [From Imitrex] Adverse Reaction (Verified 05/13/24 11:57) cluster migraine Medication List - Last Reconciled 05/13/24 by Di Mccarty MD levothyroxine 50 mcg PO DAILY meloxicam 15 mg PO DAILY PRN pravastatin 20 mg PO DAILY tramadol 50 mg PO Q12H PRN valsartan 80 mg PO DAILY Tobacco use date assessed: 03/30/24 Fall risk assessment: No Falls in past year Last assessed Fall Risk: 05/13/24 Dental Screening Dental Screen Date: 03/30/24 HPI BackPain HPI Details Patient presents for the follow-up on hypertension hyperlipidemia and hypothyroidism. She complains of chronic lower back pain and will be starting physical therapy [facility] Surgical History H/O wrist surgery Hx of tonsillectomy Hx of laparoscopic gastric banding Family History Father No problems noted. Mother Heart attack Dementia Diabetes Social History Household Members Other:: lives with 3 roomates, , on disability for lower back pain, Housing: House Patient Tobacco Use Status: Never used Tobacco e-Cigarette/Vaping Use: Never Used service: No Current occupational status: disabled Cognitive needs: No Hearing needs: No Vision needs: Yes Questionnaire PHQ-9 Over the last 2 weeks, how often have you been bothered by any of the following problems? 1. Little interest or pleasure in doing things: not at all Source: Developed by Drs. Denzel Bueno, Joanna Drew, Tristen Porter and colleagues, with an educational little from [employer]. Thrive Questionnaire Date Thrive assessed: 05/13/24 I am a: Patient What is your living situation today?: I have a steady place to live Within the past 12 months, did the food you bought not last and you didn't have the money to get more?: Sometimes True Within the past 12 months, did you worry whether your food would run out before you got money to buy more?: Sometimes True Do you have trouble paying for medicines?: No Do you have trouble getting transportation to medical appointments?: No Do you have trouble paying your heating and electricity bill?: No Do you have trouble taking care of your child, family member or friend?: No Do you have trouble with day-to-day activities such as bathing, preparing meals, shopping, managing finances, etc.?: No Are you currently unemployed and looking for a job?: I choose not to answer this question Are you interested in more education?: No Please select the resources that you would like help with: None Currently or been in a relationship where the following occur: No concerns reported THRIVE Score: 2 AUDIT C Alcohol Use Questionnaire (AUDIT-C) 1. How often do you have a drink containing alcohol?: Never 3. How often do you have six or more drinks on one occasion?: Never Total Score: 0 RICKY-7 AMB Questionnaire RICKY-7 Date RICKY - 7 assessed: 07/12/23 Feeling nervous, anxious, or on edge: 1 = Several days Not being able to stop or control worryin = Several days Worrying too much about different things: 1 = Several days Trouble relaxin = Several days Being so restless that it is hard to sit still: 0 = Not at all Becoming easily annoyed or irritable: 0 = Not at all Feeling afraid as if something awful might happen: 1 = Several days Total RICKY-7 score (0-4 normal; 5-9 mild; 10-14 moderate; 15-21 severe): 5 Source: Developed by Drs. Denzel Bueno, Joanna Drew, Tristen Porter and colleagues, with an educational little from [employer]. Review of Systems Const All systems reviewed & are unremarkable except as noted in HPI and below Card Reports no additional complaints Resp Reports no additional complaints GI Reports no additional complaints Physical exam (Primary Care) Vital Signs: Last Vital Signs Pulse 81 05/13/24 11:54 BP 126/78 05/13/24 11:54 Pulse Ox 98 05/13/24 11:54 Oxygen Delivery Method Room Air 05/13/24 11:54 BMI result Body Mass Index 39.9 Tobacco/Smoking Status: Tobacco use Status Tobacco use date assessed 03/30/24 05/13/24 11:58 Patient Tobacco Use Status Never used Tobacco 05/13/24 11:58 e-Cigarette/Vaping Use Never Used 05/13/24 11:58 Thrive Assessment: Date of Thrive Assessment Date Thrive assessed 05/13/24 05/13/24 11:58 Currently or been in a relationship where the following occur: No concerns reported Const General: no acute distress HENMT Head: Yes normal to inspection Throat: Yes posterior oropharynx normal Neck Neck: Yes supple Resp Effort & Inspection: normal respiratory effort Auscultation: clear to auscultation bilaterally Cardio Rhythm: regular rhythm Heart sounds: S1 normal heart sound present and S2 normal heart sound present GI Inspection: Yes normal to inspection Palpation (GI): Soft to palpation Assessment and Plan Assessment & Plan (1) Leukocytes in urine: Code(s): R82.998 - Other abnormal findings in urine (2) Hypertension, essential: Code(s): I10 - Essential (primary) hypertension Plan: Continue valsartan (3) Hypothyroidism: Code(s): E03.9 - Hypothyroidism, unspecified Plan: Increase levothyroxine to 50 mcg a day and check TSH in 2 months (4) Lower back pain: Comment: f/u Dr. Mcclendon prescribes Tramadol Code(s): M54.50 - Low back pain, unspecified Qualifiers: Chronicity: chronic Back pain laterality: midline Sciatica presence: with sciatica Sciatica laterality: bilateral sciatica Qualified Code(s): M54.41 - Lumbago with sciatica, right side; M54.42 - Lumbago with sciatica, left side; G89.29 - Other chronic pain Plan: Follow-up with pain management (5) Hyperlipidemia: Code(s): E78.5 - Hyperlipidemia, unspecified Plan: Start pravastatin 20 mg a day continue low-cholesterol diet check lipid profile in 2 months Orders: Orders Lipid Panel 2 Months E78.5 - Hyperlipidemia, unspecified, I10 - Essential (primary) hypertension Urine Culture Today R82.998 - Other abnormal findings in urine Comprehensive [place]. Panel Fast 2 Months E78.5 - Hyperlipidemia, unspecified, I10 - Essential (primary) hypertension TSH reflex Free T4 2 Months E78.5 - Hyperlipidemia, unspecified, I10 - Essential (primary) hypertension Medications: New levothyroxine 50 mcg PO DAILY 90 tabs 0RF pravastatin 20 mg PO DAILY 90 tabs 1RF Discontinued levothyroxine Discontinued Reason: Doctor's Order 25 mcg PO DAILY 90 tabs 3RF Coding Level of Care Code Est Pt Level 4 (81938) Diagnoses Leukocytes in urine R82.998 Hypertension, essential I10 Hypothyroidism E03.9 Chronic midline low back pain with bilateral sciatica M54.41; M54.42; G89.29 Chronicity: chronic Back pain laterality: midline Sciatica presence: with sciatica Sciatica laterality: bilateral sciatica Hyperlipidemia E78.5
== END 2024-05-13 13:55 | disposition home or self-care (01) ==
PROVIDERS: PCP Internal Medicine; Visit Provider Internal Medicine
DX: R82.998 Other abnormal findings in urine (principal); I10 Essential (primary) hypertension; E03.9 Hypothyroidism, unspecified; M54.41 Lumbago with sciatica, right side; M54.42 Lumbago with sciatica, left side; G89.29 Other chronic pain; E78.5 Hyperlipidemia, unspecified
CPT/HCPCS: 99214

== ENCOUNTER 2024-05-13 13:02 | Outpatient (REF) | payer MEDICARE, MEDICAID, SELFPAY | END 2024-05-13 13:03 | disposition home or self-care (01) | LOC: HO.HMGCLDS 13:02 | PROVIDERS: PCP Internal Medicine; Visit Provider Internal Medicine | DX: R82.998 Other abnormal findings in urine (principal) | CPT/HCPCS: 87086 ==

== ENCOUNTER 2024-06-17 13:54 | Outpatient (AMB) | payer MEDICARE, MEDICAID, SELFPAY ==
[2024-06-17 14:27] VITALS: BP 122/74; PULSE 86; O2SAT 98; BMI 39.5
--- NOTE | 2024-06-17 14:27 | MHC.PC.OV ---
Vital Signs 06/17/24 14:27 Height 5 ft 6 in Weight 245 lb BMI 39.5 BP 122/74 Blood Pressure Location Lt brachial Position Sitting Pulse 86 Pulse Source Pulse Oximeter Pulse Oximetry (%) 98 Oxygen Delivery Method Room Air Intake Visit Reasons: 2 months follow up Intake Note: Pt is here today for 2 months follow up visit. Allergies naproxen Adverse Reaction (Verified 06/17/24 14:27) uclers sumatriptan [From Imitrex] Adverse Reaction (Verified 06/17/24 14:27) cluster migraine Medication List - Last Reconciled 06/17/24 by Di Mccarty MD levothyroxine 50 mcg PO DAILY meloxicam 15 mg PO DAILY PRN pravastatin 20 mg PO DAILY tramadol 50 mg PO Q12H PRN valsartan 80 mg PO DAILY Tobacco use date assessed: 06/17/24 Fall risk assessment: No Falls in past year Last assessed Fall Risk: 06/17/24 Dental Screening Dental Screen Date: 03/30/24 HPI 2 months follow up HPI Details Patient presents for the follow-up of hypertension hyperlipidemia and hypothyroidism. She has been getting physical therapy for chronic lower back pain PFSH Surgical History H/O wrist surgery Hx of tonsillectomy Hx of laparoscopic gastric banding Family History Father No problems noted. Mother Heart attack Dementia Diabetes Social History Household Members Other:: lives with 3 roomates, , on disability for lower back pain, Housing: House Patient Tobacco Use Status: Never used Tobacco e-Cigarette/Vaping Use: Never Used service: No Current occupational status: disabled Cognitive needs: No Hearing needs: No Vision needs: Yes Questionnaire PHQ-9 Over the last 2 weeks, how often have you been bothered by any of the following problems? 1. Little interest or pleasure in doing things: not at all 2. Feeling down, depressed, or hopeless: not at all 3. Trouble falling or staying asleep, or sleeping too much: not at all 4. Feeling tired or having little energy: not at all 5. Poor appetite or overeating: not at all 6. Feeling bad about yourself - or that you are a failure or have let yourself or your family down: not at all 7. Trouble concentrating on things, such as reading the newspaper or watching television: not at all 8. Moving or speaking so slowly that other people could have noticed. Or the opposite - being so fidgety or restless that you have been moving around a lot more than usual: not at all 9. Thoughts that you would be better off or of hurting yourself in some way: not at all Total score: 0 Depression Screening Interpretation: Negative Depression Screening Done: Yes 07344 - PHQ-9 Billing: Yes Source: Developed by Drs. Denzel Bueno, Joanna Drew, Tristen Porter and colleagues, with an educational little from [employer]. Thrive Questionnaire Date Thrive assessed: 06/17/24 I am a: Patient What is your living situation today?: I have a steady place to live Within the past 12 months, did the food you bought not last and you didn't have the money to get more?: Sometimes True Within the past 12 months, did you worry whether your food would run out before you got money to buy more?: Sometimes True Do you have trouble paying for medicines?: No Do you have trouble getting transportation to medical appointments?: No Do you have trouble paying your heating and electricity bill?: No Do you have trouble taking care of your child, family member or friend?: No Do you have trouble with day-to-day activities such as bathing, preparing meals, shopping, managing finances, etc.?: No Are you currently unemployed and looking for a job?: I choose not to answer this question Are you interested in more education?: No Please select the resources that you would like help with: None Currently or been in a relationship where the following occur: No concerns reported THRIVE Score: 2 RICKY-7 AMB Questionnaire RICKY-7 Date RICKY - 7 assessed: 06/17/24 Feeling nervous, anxious, or on edge: 0 = Not at all Not being able to stop or control worryin = Not at all Worrying too much about different things: 0 = Not at all Trouble relaxin = Not at all Being so restless that it is hard to sit still: 0 = Not at all Becoming easily annoyed or irritable: 0 = Not at all Feeling afraid as if something awful might happen: 0 = Not at all Total RICKY-7 score (0-4 normal; 5-9 mild; 10-14 moderate; 15-21 severe): 0 Source: Developed by Drs. Denzel Bueno, Joanna Drew, Tristen Porter and colleagues, with an educational little from [employer]. RICKY-7 Assessment Billing RICKY-7 Assessment Tool: RICKY-7 Assessment 81914 Review of Systems Const All systems reviewed & are unremarkable except as noted in HPI and below ENT Reports no additional complaints Card Reports no additional complaints Resp Reports no additional complaints GI Reports no additional complaints Reports no additional complaints Physical exam (Primary Care) Vital Signs: Last Vital Signs Pulse 86 06/17/24 14:27 BP 122/74 06/17/24 14:27 Pulse Ox 98 06/17/24 14:27 Oxygen Delivery Method Room Air 06/17/24 14:27 BMI result Body Mass Index 39.5 Tobacco/Smoking Status: Tobacco use Status Tobacco use date assessed 06/17/24 06/17/24 14:29 Patient Tobacco Use Status Never used Tobacco 06/17/24 14:29 e-Cigarette/Vaping Use Never Used 06/17/24 14:29 PHQ-9: PHQ-9 Score PHQ-9: Total score 0 06/17/24 14:37 Depression Screening Interpretation: Negative Thrive Assessment: Date of Thrive Assessment Date Thrive assessed 06/17/24 06/17/24 14:37 Currently or been in a relationship where the following occur: No concerns reported Const General: no acute distress HENMT Head: Yes normal to inspection Eyes General: appearance normal, both eyes and all related structures Resp Effort & Inspection: normal respiratory effort Auscultation: clear to auscultation bilaterally Cardio Rhythm: regular rhythm Heart sounds: S1 normal heart sound present and S2 normal heart sound present GI Inspection: Yes normal to inspection Palpation (GI): Soft to palpation Percussion: Yes normal to percussion Auscultation: normal bowel sounds Assessment and Plan Assessment & Plan (1) Hyperlipidemia: Code(s): E78.5 - Hyperlipidemia, unspecified Plan: Continue pravastatin return for fasting labs including lipid profile (2) Hypertension, essential: Code(s): I10 - Essential (primary) hypertension Plan: Continue current medications (3) Hypothyroidism: Code(s): E03.9 - Hypothyroidism, unspecified Plan: Continue levothyroxine Orders: Orders Lipid Panel 8 Months E03.9 - Hypothyroidism, unspecified, E78.5 - Hyperlipidemia, unspecified, I10 - Essential (primary) hypertension Complete Blood Count Auto Diff 8 Months E03.9 - Hypothyroidism, unspecified, E78.5 - Hyperlipidemia, unspecified, I10 - Essential (primary) hypertension Comprehensive [place]. Panel Fast 8 Months E03.9 - Hypothyroidism, unspecified, E78.5 - Hyperlipidemia, unspecified, I10 - Essential (primary) hypertension TSH reflex Free T4 8 Months E03.9 - Hypothyroidism, unspecified, E78.5 - Hyperlipidemia, unspecified, I10 - Essential (primary) hypertension Coding Level of Care Code Est Pt Level 4 (32421) Diagnoses Hyperlipidemia E78.5 Hypertension, essential I10 Hypothyroidism E03.9 Additional Codes RICKY-7 Assessment Billing - RICKY-7 Assessment Tool: RICKY-7 Assessment 12549 ([id number])
== END 2024-06-17 15:02 | disposition home or self-care (01) ==
PROVIDERS: PCP Internal Medicine; Visit Provider Internal Medicine
DX: E78.5 Hyperlipidemia, unspecified (principal); I10 Essential (primary) hypertension; E03.9 Hypothyroidism, unspecified

== ENCOUNTER → 2024-06-17 13:54 | Outpatient (BNVA) | payer MEDICARE, MEDICAID, SELFPAY | PROVIDERS: PCP Internal Medicine; Visit Provider Internal Medicine | DX: E78.5 Hyperlipidemia, unspecified (principal); E03.9 Hypothyroidism, unspecified; I10 Essential (primary) hypertension | CPT/HCPCS: 96127; 99212 ==

== ENCOUNTER 2024-06-26 13:00 | Outpatient (RCR) | payer MEDICARE, OTHER, SELFPAY ==
--- NOTE | 2024-06-08 10:52 | MHC.PT.EP ---
[facility] [place] [facility] [place] [facility] [place] [facility] [address] Kirit Conde [address] [phone] F: [phone] F: [phone] F: [phone] F: [phone] Physical Therapy Plan of Care Date of Evaluation: 06/08/24 Date of Surgery: n/a Diagnosis: low back pain Assessment: Patient is a 64 year old female presenting to PT with complaints of pain in her low back. Pt reports onset of pain began worsening in the spring due to lifting an AC unit. She presents today with impairments in pain, numbness and tingling, core strength, hip strength, ROM, posture. Pt's current occupation is disabled, with baseline physical activities including ambulating, ADLs, yardwork, bending, lifting. Pt expresses [facility] goal of reducing pain, and is motivated to work towards this in PT. Clinical presentation today is most consistent with signs and sx associated with low back pain and pt will benefit from skilled PT 2 week x 4 weeks to address the following problems and impairments noted upon evaluation: pain, numbness and tingling, core strength, hip strength, ROM, posture. These problems limit the patient with the following functional activities: ambulating, ADLs, yardwork, bending, lifting. The prescribed treatment plan of care is medically necessary. Co-morbidities of knee arthritis were identified and taken into considerations of plan of care. Pt was educated on HEP, role of PT, prognosis, POC. Frequency and Duration: The patient will be seen 2 x week x 4 weeks Short Term Goals: Pt will demonstrate centralization of sx in 2 weeks. Pt will demonstrate improved hip MMT strength by 1/3 grade in 2 weeks for improved lumbopelvic stability. Pt will demonstrate ability to move through available lumbar ROM min to no pain. C++ Professor Goals: Pt will demonstrate improved Dominik score by 10% in 4 weeks for improved functional mobility. 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 Pt will demonstrate ability to bend and lift with min to no pain in 4 weeks for improved ability to perform ADLs. Treatment Plan: Modalities to reduce pain, spasms and effusion. Manual therapy to restore motion and function. Therapeutic exercise to improve strength and flexibility. Neuromuscular re-education for posture and balance. Therapeutic activities to return to functional activities of daily living. Electronically signed by: Skyla Vogel, PT, DPT, ATC Please sign and return to therapist. Thank you for your referral.
--- NOTE | 2024-08-04 13:25 | MHC.PT.DC ---
[facility] [place] Office [place] Office [place] Office [address] [phone] F: [phone] F: [phone] F: [phone] F: [phone] Physical Therapy Discharge Report Diagnosis: low back pain Date of Surgery: n/a Date of Evaluation: 06/08/24 Date of Discharge: 08/04/24 Treatments to Date: 4 Cancellations to Date: 2 No Shows to Date: 0 Discharge Status: Patient Elected to Stop Discharge Summary: Pt cancelled remaining appointments and did not call in >30 days to be scheduled. Therefore to be d/c. Electronically signed by: Skyla Vogel, PT, DPT, ATC Please sign and return to therapist. Thank you for your referral.
== END 2024-08-04 13:26 | disposition home or self-care (01) ==
LOC: HO.PTCHIC 13:00
PROVIDERS: PCP Internal Medicine; Visit Provider Physical Medicine & Rehabilitation
DX: R29.818 Other symptoms and signs involving the nervous system (principal); M54.50 Low back pain, unspecified
CPT/HCPCS: 97110; 97161

== ENCOUNTER 2024-07-24 09:53 | Outpatient (AMB) | payer MEDICARE, MEDICAID, SELFPAY ==
--- NOTE | 2024-07-24 10:09 | A.OFFVIS_ITS ---
Vital Signs 07/24/24 10:18 Height 5 ft 6 in Intake Visit Reasons: OV- lower back follow up Intake Note: Cathi is a 63 year old female who presents to the office today for a follow up visit for lower back pain and bilateral leg weakness. She reports more pain, numbness and weakness. She feels that physical therapy made things worse. She was taking tramadol while in therapy. Allergies naproxen Adverse Reaction (Verified 07/24/24 10:17) uclers sumatriptan [From Imitrex] Adverse Reaction (Verified 07/24/24 10:17) cluster migraine Medication List - Last Reconciled 07/24/24 by Mary Pisano, RN levothyroxine 50 mcg PO DAILY meloxicam 15 mg PO DAILY PRN pravastatin 20 mg PO DAILY tramadol 50 mg PO Q12H PRN valsartan 80 mg PO DAILY HPI Comments Details: He follows with Dr. Mcclendon for chronic pain, last seen in September. She had a fall/slip in September. She was supposed to have MRI lumbar (hasnt had one for 10 years) but it was denied by insurance. More than 10 years ago, had caudal injection, can't remember what kind exactly. Lifted an AC few months ago. Been having muscle weakness whole body, but started on her legs. Back pain lower, midline, feels it's like twisting. Worse with prolonged standing, feels that she might collapse. Can only walk 10 feet before she feels weaker. Owns a walker. She has new PCP Dr. Mccarty. On Tramadol prescribed by Dr. Mcclendon. No recent PT. She also has chronic neck pain hand numbness. History of vertigo. Xrays done last visit did not show fracture. Her most pain is mostly lower back, with numbness and weakness on legs. Has neck pain and numbness on arms. Wakes up with cramps on hands. Had EMG 30 years, [facility] bilateral already. [facility] Surgical History H/O wrist surgery Hx of tonsillectomy Hx of laparoscopic gastric banding Family History Father No problems noted. Mother Heart attack Dementia Diabetes Social History (Reviewed 06/17/24 @ 14:37 by KATHY Kaufman Household Members Other:: lives with 3 roomates, , on disability for lower back pain, Housing: House Patient Tobacco Use Status: Never used Tobacco e-Cigarette/Vaping Use: Never Used service: No Current occupational status: disabled Cognitive needs: No Hearing needs: No Vision needs: Yes Physical Exam Constitutional: Patient appears to be in no acute distress, well nourished and well developed. Patient was appropriately conversant and oriented. Good historian. Neurological: Neurologic examination of the upper and lower extremities was nonfocal with intact sensation, muscle stretch reflexes and without focal motor deficits . Gait is non-antalgic without loss of balance. Results Reviewed Results Reviewed: Ordering Physician: Rachel Calixto Date of Service: 04/09/24 Procedure(s): XR thoracic spine 2V Accession Number(s): [id number] cc: Di Mccarty MD; Rachel Kimal~ EXAMINATION: XR THORACOLUMBAR SPINE CLINICAL INFORMATION: Low back COMPARISON: None available. TECHNIQUE: AP and lateral views of thoracic spine FINDINGS: There are multilevel degenerative changes with features of degenerative spondylosis, with marginal spurring. Pedicles are preserved. Soft XR/XR thoracic spine 2V tissues are unremarkable and there is mild levoscoliosis. IMPRESSION: Multilevel degenerative spondylosis Ordering Physician: Rachel Calixto Date of Service: 04/09/24 Procedure(s): XR lumbar spine 2-3V Accession Number(s): [id number] cc: Di Mccarty MD; Rachel Kimal~ EXAMINATION: XR LUMBOSACRAL SPINE CLINICAL INFORMATION: Low back pain COMPARISON: None available. TECHNIQUE: Three views of the lumbosacral spine. FINDINGS: Vertebral bodies are well aligned and intervertebral discs are preserved except of narrowing cough L4-L5 and L5-S1 with grade 1 anterior listhesis. Pedicles are preserved and sacroiliac joint is unremarkable. XR/XR lumbar spine 2-3V IMPRESSION: Degenerative changes at the level of L4-L5 and L5-S1 with grade 1 anterior listhesis Ordering Physician: Rachel Calixto Date of Service: 04/09/24 Procedure(s): XR cervical spine 3V Accession Number(s): [id number] cc: Di Mccarty MD; Rachel Dash EXAMINATION: XR CERVICAL SPINE CLINICAL INFORMATION: Cervicalgia COMPARISON: None available. TECHNIQUE: 3 views of the cervical spine were obtained. FINDINGS: There is straightening of cervical lordosis with narrowing cough C4-C5, C5-C6 and C6-C7 intervertebral disc spaces. Pedicles are preserved there is uncovertebral osteophytosis seen at the same level also. Soft tissues unremarkable XR/XR cervical spine 3V IMPRESSION: Degenerative changes at the level of C4-C7 Assessment & Plan Assessment & Plan (1) Chronic neck and back pain: Code(s): M54.2 - Cervicalgia; M54.9 - Dorsalgia, unspecified; G89.29 - Other chronic pain Category: Medical (2) Lower back pain: Comment: f/u Dr. Mcclendon prescribes Tramadol Code(s): M54.50 - Low back pain, unspecified Category: Medical Qualifiers: Chronicity: chronic Back pain laterality: midline Sciatica presence: with sciatica Sciatica laterality: bilateral sciatica Qualified Code(s): M54.41 - Lumbago with sciatica, right side; M54.42 - Lumbago with sciatica, left side; G89.29 - Other chronic pain (3) Neurogenic claudication: Code(s): R29.818 - Other symptoms and signs involving the nervous system Category: Medical Plan Chronic neck and back pain. She gets pain medications from Dr. Mcclendon. Dr. Mcclendon already ordered the lumbar MRI and has been approved since patient has been going to PT. Patient will continue to follow with Dr. Mcclendon for both neck and back pain. Assessment and plan discussed with patient, and patient was agreeable. All questions were answered thoroughly. No further follow up with me. Rachel Lord MD, MARI Board Certified, [place] Board of Physical Medicine and Rehabilitation (ABPMR) Board Certified, [place] Board of Electrodiagnostic Medicine (ABEM) Coding Level of Care Code Est Pt Level 3 (86792) Diagnoses Chronic neck and back pain M54.2; M54.9; G89.29 Chronic midline low back pain with bilateral sciatica M54.41; M54.42; G89.29 Chronicity: chronic Back pain laterality: midline Sciatica presence: with sciatica Sciatica laterality: bilateral sciatica Neurogenic claudication R2.075
== END 2024-07-24 10:49 | disposition home or self-care (01) ==
LOC: HO.HOS 09:54
PROVIDERS: PCP Internal Medicine; Visit Provider Physical Medicine & Rehabilitation
DX: M54.2 Cervicalgia (principal); M54.9 Dorsalgia, unspecified; G89.29 Other chronic pain; M54.41 Lumbago with sciatica, right side; M54.42 Lumbago with sciatica, left side; R29.818 Other symptoms and signs involving the nervous system
CPT/HCPCS: 99213

== ENCOUNTER → 2024-07-24 09:53 | Outpatient (BNVA) | payer MEDICARE, OTHER, SELFPAY | PROVIDERS: PCP Internal Medicine; Visit Provider Physical Medicine & Rehabilitation | DX: M54.2 Cervicalgia (principal); M54.9 Dorsalgia, unspecified; M54.41 Lumbago with sciatica, right side; M54.42 Lumbago with sciatica, left side; R29.818 Other symptoms and signs involving the nervous system; G89.29 Other chronic pain | CPT/HCPCS: 99212 ==

== ENCOUNTER → 2024-08-02 10:40 | Outpatient (BNV) | payer MEDICARE, MEDICAID, SELFPAY | PROVIDERS: PCP Internal Medicine; Visit Provider Radiology Diagnostic Radiology | DX: M54.16 Radiculopathy, lumbar region (principal) | CPT/HCPCS: 72148 ==

== ENCOUNTER 2024-08-02 10:41 | Outpatient (REF) | payer MEDICARE, OTHER, SELFPAY ==
--- NOTE | ~2024-08-02 | MR_ITS ---
EXAMINATION: MR LUMBAR SPINE WITHOUT CONTRAST CLINICAL INFORMATION: Low back pain with radicular symptoms into bilateral lower extremities. Chronic. 20+ years. 64-year-old female. COMPARISON: No prior MRI. Lumbar radiographs 04/09/2024. TECHNIQUE: Multiplanar multisequence MR imaging of the lumbar spine was done without IV contrast. Examination was performed on a 1.5 Sherry Siemens magnet, utilizing standard sequences. 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 FINDINGS: CORONAL ALIGNMENT: -Normal. SAGITTAL ALIGNMENT: - Normal lordosis. -3 mm degenerative retrolisthesis L5 on L6, and 5 mm anterolisthesis of L6 on S1. -There appear to be full-thickness L6 pars defects. -No additional subluxations. LUMBOSACRAL JUNCTION: -Transitional lumbosacral anatomy with lowest lumbar-like segment labeled as L6. There are 6 nonrib-bearing vertebral bodies. -Aortic bifurcation typically occurs L4; Iliolumbar ligaments define the L5 vertebral body. -With this numbering schema, the last fully formed vertebral body will be termed L6, transitional level. This likely represents a lumbarized S1 vertebral body. If intervention is considered, confirmation of level counting is highly recommended. VERTEBRAL BODIES/BONE MARROW: -No compression deformity. There are mild edematous type endplate changes mixed with fatty endplate changes at L5-L6, and L6-S1. -No abnormal infiltrating bone marrow signal. -No compression deformities. DISCS: -Severe loss of disc height and signal L5-L6, and L6-S1. -Mild loss of signal and height at T11-T12. -Discs otherwise well preserved. SPINAL CANAL: -No abnormal developmental findings. CONUS MEDULLARIS: -Terminates at L1-L2 disc level. Morphology and signal is normal. INTRADURAL NERVE ROOTS: - Normal in appearance without evidence of clumping or mass. -Early termination of the thecal sac at the L6-S1 disc level. Axial Disc Space Images: T12-L1: Tiny left paracentral disc protrusion. Mild facet arthropathy bilaterally. No significant central canal or neural foraminal narrowing. L1-L2: Mild to moderate hypertrophic facet changes bilaterally. No central canal or neural foraminal narrowing. L2-L3: Mild hypertrophic facet changes bilaterally. No significant central canal narrowing. There is mild bilateral neural foraminal narrowing. L3-L4: There are tiny bilateral foraminal disc protrusions. [id number]-ezcsgteb hypertrophic degenerative facet changes bilaterally. No significant central canal or subarticular recess narrowing. Mild bilateral neural foraminal narrowing. L4-L5: Moderate left and mild to moderate right facet hypertrophic arthropathy, with prominent posterior ligamentous thickening/infolding. No focal disc pathology. There is mild central canal stenosis, mild left greater than right subarticular recess stenosis, and mild right greater than left neural foraminal stenosis. L5-L6: Shallow concentric disc bulge present, severe disc degeneration, moderate bilateral hypertrophic degenerative facet changes, posterior ligamentous thickening/infolding, with the findings resulting in mild central canal narrowing, moderate bilateral subarticular recess narrowing with contact but no definite impingement or mass effect upon the traversing L6 roots. There is severe left and moderate to severe right neural foraminal stenosis. There is likely impingement of the exiting left L5 root. L6-S1: There is a 5 mm, grade 1 spondylolisthesis present with full-thickness pars defects present. Mild central canal stenosis. Moderate hypertrophic facet changes present and somewhat hypoplastic facets, with findings resulting in mild central canal stenosis, mild bilateral subarticular recess stenosis, moderate to severe right greater than left neural foraminal stenosis. IMAGED SI JOINTS: -Minimal degenerative changes bilaterally. PARAVERTEBRAL AND INCLUDED EXTRASPINAL SOFT TISSUES: -Normal. MR/MR lumbar spine wo con IMPRESSION: 1. Transitional lumbosacral anatomy present, with 6 ijj-zzu-juwieec vertebral bodies. For the purposes of this report, the last fully formed vertebral body is termed L6. If intervention is considered, recommend confirmation of level counting. 2. Grade 1 spondylolisthesis measuring 5 mm at L6-S1. Full-thickness pars defects. 3. There is a 3 mm retrolisthesis L5-L6. 4. Significant disc and facet degeneration L5-L6, and L6-S1. 5. No significant central canal or subarticular recess stenosis. 6. At L5-L6, there is severe right neural foraminal encroachment. At L6-S1, there is moderate to severe right greater than left neural foraminal encroachment. 7. See above for additional details. Electronically signed by: Alvin Melendez MD 09/01/2024 01:51 PM [facility] [place]
== END 2024-08-02 10:42 | disposition home or self-care (01) ==
LOC: HO.MRI 10:41
PROVIDERS: PCP Internal Medicine; Visit Provider Physical Medicine & Rehabilitation
DX: M54.16 Radiculopathy, lumbar region (principal); M48.062 Spinal stenosis, lumbar region with neurogenic claudication
CPT/HCPCS: 72148

== ENCOUNTER 2024-08-08 08:06 | Outpatient (REF) | payer MEDICARE, OTHER, SELFPAY ==
[2024-08-08 11:45] LABS: Alanine Aminotransferase 47 U/L (0-31); Albumin Level 3.7 g/dL (3.5-5.0); Alkaline Phosphatase 47 U/L (39-117); Anion Gap 9 (12-20); Aspartate Amino Transferase 36 U/L (5-31); Bilirubin Total 0.4 mg/dL (0.0-1.0); Blood Urea Nitrogen 11 mg/dL (9-16); Calcium 8.8 mg/dL (8.4-10.2); Carbon Dioxide 24 mmol/L (22-29); Chloride 113 mmol/L (96-108); Cholesterol 205 mg/dL (<200); Estimated Glomerular Filt Rate > 60; Glucose Fasting 104 mg/dL (60-99); HDL Cholesterol 52 mg/dL (>40); LDL Cholesterol Calculated 133 mg/dL (<100); Potassium 4.1 mmol/L (3.3-5.1); Sodium 142 mmol/L (135-145); Total Protein 5.9 g/dL (6.5-8.0); Triglycerides 104 mg/dL (<150)
[2024-08-08 12:20] LABS: TSH reflex Free T4 4.84 uIU/mL (0.32-4.0)
[2024-08-08 12:51] LABS: Free T4 (Free Thyroxine) 0.86 ng/dL (0.71-1.85)
== END 2024-08-08 08:07 | disposition home or self-care (01) ==
LOC: HO.HMGCLDS 08:06
PROVIDERS: PCP Internal Medicine; Visit Provider Internal Medicine
DX: I10 Essential (primary) hypertension (principal); E78.5 Hyperlipidemia, unspecified
CPT/HCPCS: 36415; 80053; 80061; 84439; 84443

== ENCOUNTER 2024-09-09 13:34 | Outpatient (AMB) | payer MEDICARE, MEDICAID, SELFPAY ==
[2024-09-09 13:45] VITALS: BP 122/70; PULSE 86; TEMP 37.3; O2SAT 98; BMI 39.5
--- NOTE | 2024-09-09 13:45 | MHC.OFFWIV ---
Intake Vital Signs 09/09/24 13:45 Height 5 ft 6 in Weight 245 lb BMI 39.5 BP 122/70 Blood Pressure Location Lt brachial Position Sitting Pulse 86 Pulse Source Pulse Oximeter Temp 99.1 F Temp Source Oral Pulse Oximetry (%) 98 Oxygen Delivery Method Room Air Intake Visit Reasons: EP on and off heart palpitations Patient Tobacco Use Status: Never used Tobacco Allergies pravastatin Adverse Reaction (Intermediate, Verified 08/31/24 08:19) myalgia naproxen Adverse Reaction (Verified 07/24/24 10:17) uclers sumatriptan [From Imitrex] Adverse Reaction (Verified 07/24/24 10:17) cluster migraine HPI EP on and off heart palpitations HPI Details This note is constructed using voice recognition software. 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 The patient is a 64 year old female who presents to the clinic today with intermittent palpitations. She reports that she has had low-level palpitations intermittently for nearly her entire life, but they are very short-lived, and resolve without intervention. She is treated for a thyroid disorder, with levothyroxine, and did feel that it her thyroid had something to do with the palpitations. She started medication, had a medication adjustment based on labs, and had increased symptoms. She notes that when she takes her medication the symptoms go away, but later on in the day the symptoms come back. She also notes that she is under a great deal of stress which she feels may also be triggering this. She deals with chronic pain which she is working with pain management 4. She denies chest pain, shortness of breath, lightheadedness, dizziness. ON LICENSE OF [facility] Surgical History H/O wrist surgery Hx of tonsillectomy Hx of laparoscopic gastric banding Family History Father No problems noted. Mother Heart attack Dementia Diabetes Social History Household Members Other:: lives with 3 roomates, , on disability for lower back pain, Housing: House Patient Tobacco Use Status: Never used Tobacco e-Cigarette/Vaping Use: Never Used service: No Current occupational status: disabled Cognitive needs: No Hearing needs: No Vision needs: Yes Review of Systems Const All systems reviewed & are unremarkable except as noted in HPI and below Physical Exam Vital Signs: Last Vital Signs Temp 99.1 F 09/09/24 13:45 Pulse 86 09/09/24 13:45 BP 122/70 09/09/24 13:45 Pulse Ox 98 09/09/24 13:45 Oxygen Delivery Method Room Air 09/09/24 13:45 BMI result Body Mass Index 39.5 Const General: cooperative, healthy appearing, comfortable, no acute distress and well developed Orientation/consciousness: patient oriented x3 Limitations: no limitations HEENT Head: Yes normal to inspection Ears: hearing grossly normal bilaterally General nose exam: Normal external nose present Face and sinus: Yes normal facial exam Eyes General: appearance normal, both eyes and all related structures Neck Neck: Yes normal visual inspection and Yes full ROM Resp Effort & Inspection: normal respiratory effort and able to speak in complete sentences Auscultation: clear to auscultation bilaterally Cardio Rate: regular rate Rhythm: regular rhythm Heart sounds: normal S1 and S2 Skin General skin exam: no rashes or lesions noted Neuro General: patient oriented x3 Extrem General: Yes normal to inspection Office Procedures EKG [id number], Complete Results Reviewed Results Reviewed: In office EKG NSR. Assessment & Plan Assessment & Plan (1) Palpitations: Code(s): R00.2 - Palpitations Plan: In office EKG normal. Likely secondary to hypothyroidism. She has both labs and medication adjustment questions pending with pcp, advised to follow with pcp for direction. Advised ER with unresolving symptoms, CP, or dyspnea. Plan See above for full details and plan. Orders: Orders AMB EKG-In Office Today R00.2 - Palpitations Coding Level of Care Code Est Pt Level 4 (10840) Diagnoses Palpitations R00.2 CPT Codes EKG - CPT: 97214-[id number], Complete ([id number])
== END 2024-09-09 14:51 | disposition home or self-care (01) ==
PROVIDERS: PCP Internal Medicine; Visit Provider Registered Nurse
DX: R00.2 Palpitations (principal)

== ENCOUNTER → 2024-09-09 13:34 | Outpatient (BNVA) | payer MEDICARE, OTHER, SELFPAY | PROVIDERS: PCP Internal Medicine; Visit Provider Registered Nurse | DX: R00.2 Palpitations (principal) | CPT/HCPCS: 93005; 99212 ==

== ENCOUNTER 2024-09-11 10:18 | Outpatient (AMB) | payer MEDICARE, SELFPAY ==
[2024-09-11 10:21] VITALS: BP 124/76; PULSE 80; O2SAT 98; BMI 39.5
--- NOTE | 2024-09-11 10:21 | MHC.PC.OV ---
Vital Signs 09/11/24 10:21 Height 5 ft 6 in Weight 245 lb BMI 39.5 BP 124/76 Blood Pressure Location Lt brachial Position Sitting Pulse 80 Pulse Source Pulse Oximeter Pulse Oximetry (%) 98 Oxygen Delivery Method Room Air Intake Visit Reasons: Follow up on thyroid med/palpitations Intake Note: Pt is here today for a follow up visit on thyroid med. Allergies pravastatin Adverse Reaction (Intermediate, Verified 09/11/24 10:30) myalgia naproxen Adverse Reaction (Verified 09/11/24 10:30) uclers sumatriptan [From Imitrex] Adverse Reaction (Verified 09/11/24 10:30) cluster migraine Medication List - Last Reconciled 09/11/24 by Di Mccarty MD levothyroxine 50 mcg PO DAILY meloxicam 15 mg PO DAILY PRN tramadol 50 mg PO Q12H PRN valsartan 80 mg PO DAILY Tobacco use date assessed: 09/11/24 Fall risk assessment: No Falls in past year Last assessed Fall Risk: 09/11/24 Dental Screening Dental Screen Date: 03/30/24 HPI Follow up on thyroid med/palpitations HPI Details Pt complains of palpitations a fluttering in the chest worse at night while sitting and watching TV lasting up to 10 secs, on and off for a few months but getting more frequent for the last month. Patient denies any chest pain diaphoresis nausea associated with the palpitations. She has been under increased stress due to her alcoholic roommate. Patient denies insomnia change in appetite depression. She complained of more frequent palpitations while taking higher dose of levothyroxine for 1 week. Patient has been back on her regular 50 mcg of levothyroxine for the last 2 weeks. Hypertension has been controlled on valsartan [facility] Surgical History H/O wrist surgery Hx of tonsillectomy Hx of laparoscopic gastric banding Family History Father No problems noted. Mother Heart attack Dementia Diabetes Social History Household Members Other:: lives with 3 roomates, , on disability for lower back pain, Housing: House Patient Tobacco Use Status: Never used Tobacco e-Cigarette/Vaping Use: Never Used service: No Current occupational status: disabled Cognitive needs: No Hearing needs: No Vision needs: Yes Questionnaire Thrive Questionnaire Date Thrive assessed: 05/13/24 I am a: Patient What is your living situation today?: I have a steady place to live Within the past 12 months, did the food you bought not last and you didn't have the money to get more?: Sometimes True Within the past 12 months, did you worry whether your food would run out before you got money to buy more?: Sometimes True Do you have trouble paying for medicines?: No Do you have trouble getting transportation to medical appointments?: No Do you have trouble paying your heating and electricity bill?: No Do you have trouble taking care of your child, family member or friend?: No Do you have trouble with day-to-day activities such as bathing, preparing meals, shopping, managing finances, etc.?: No Are you currently unemployed and looking for a job?: I choose not to answer this question Are you interested in more education?: No Please select the resources that you would like help with: None Currently or been in a relationship where the following occur: No concerns reported THRIVE Score: 2 RICKY-7 AMB Questionnaire RICKY-7 Date RICKY - 7 assessed: 06/17/24 Source: Developed by Drs. Denzel Bueno, Joanna Drew, Tristen Porter and colleagues, with an educational little from [employer]. Review of Systems Const All systems reviewed & are unremarkable except as noted in HPI and below ENT Reports no additional complaints Card Reports no additional complaints Resp Reports no additional complaints GI Reports no additional complaints Physical exam (Primary Care) Vital Signs: Last Vital Signs Pulse 80 09/11/24 10:21 BP 124/76 09/11/24 10:21 Pulse Ox 98 09/11/24 10:21 Oxygen Delivery Method Room Air 09/11/24 10:21 BMI result Body Mass Index 39.5 Tobacco/Smoking Status: Tobacco use Status Tobacco use date assessed 09/11/24 09/11/24 10:30 Patient Tobacco Use Status Never used Tobacco 09/11/24 10:30 e-Cigarette/Vaping Use Never Used 09/11/24 10:22 Thrive Assessment: Date of Thrive Assessment Date Thrive assessed 05/13/24 09/11/24 10:22 Currently or been in a relationship where the following occur: No concerns reported Const General: no acute distress HENMT Head: Yes normal to inspection Eyes General: appearance normal, both eyes and all related structures Resp Effort & Inspection: normal respiratory effort Auscultation: clear to auscultation bilaterally Cardio Rhythm: regular rhythm Heart sounds: S1 normal heart sound present and S2 normal heart sound present GI Inspection: Yes normal to inspection Palpation (GI): Soft to palpation Percussion: Yes normal to percussion Auscultation: normal bowel sounds Coding Level of Care Code Est Pt Level 4 (43258) Diagnoses Hypothyroidism E03.9 Palpitations R00.2 Anxiety F41.9 Hypertension, essential I10 Assessment & Plan Assessment & Plan (1) Hypothyroidism: Code(s): E03.9 - Hypothyroidism, unspecified Category: Medical Plan: Continue levothyroxine 50 mcg and check TSH in 6 weeks (2) Palpitations: Comment: Normal EKG 08/2024 Code(s): R00.2 - Palpitations Category: Medical Plan: Obtain 3 day Holter and echocardiogram. Stress management regular physical activity discussed with the patient. For any worsening symptoms she was advised to go to the emergency room. (3) Anxiety: Code(s): F41.9 - Anxiety disorder, unspecified Category: Medical Plan: Stress management discussed with the patient. Sertraline 25 mg daily will be started patient will follow-up in 6 weeks. She declined counseling (4) Hypertension, essential: Code(s): I10 - Essential (primary) hypertension Category: Medical Plan: Continue valsartan Orders: Orders ECG 3 day holter monitor Today R00.2 - Palpitations TSH reflex Free T4 6 Weeks E03.9 - Hypothyroidism, unspecified, R00.2 - Palpitations CA echo transthoracic complete Today R00.2 - Palpitations Comprehensive Met. Panel 6 Weeks E03.9 - Hypothyroidism, unspecified, R00.2 - Palpitations Medications: New sertraline 25 mg PO DAILY 30 tabs 1RF
== END 2024-09-11 11:03 | disposition home or self-care (01) ==
PROVIDERS: PCP Internal Medicine; Visit Provider Internal Medicine
DX: E03.9 Hypothyroidism, unspecified (principal); R00.2 Palpitations; F41.9 Anxiety disorder, unspecified; I10 Essential (primary) hypertension

== ENCOUNTER → 2024-09-11 10:18 | Outpatient (BNVA) | payer MEDICARE, OTHER, SELFPAY | PROVIDERS: PCP Internal Medicine; Visit Provider Internal Medicine | DX: E03.9 Hypothyroidism, unspecified (principal); R00.2 Palpitations; F41.9 Anxiety disorder, unspecified; I10 Essential (primary) hypertension | CPT/HCPCS: 99212 ==

== ENCOUNTER → 2024-10-06 09:39 | Outpatient (REF) | payer MEDICARE, OTHER, SELFPAY ==
--- NOTE | 2024-10-06 09:45 | CA_ITS ---
Transthoracic Echocardiogram Patient (Last, First, Middle): Cathi Chau, Gender: Female Date of : 1960 Age: 64 Procedure Date: 10/06/2024 Procedure Type: Transthoracic Echocardiogram Location: OP Height: 167.64 cm Weight: 111.13 kg BSA: 2.18 m2 Heart Rate: bpm BP: 124 / 76 mmHg Skating Rink Ice Maker: NORRIS Referring MD: Di Mccarty MD Symptoms: R00.2 - Palpitations Study Quality: Adequate ECG Rhythm: Sinus Conclusions: - The left ventricular systolic function is normal. The calculated ejection fraction is 59% by biplane method. - No obvious valvular pathology seen on this study. Findings Left Ventricle Normal left ventricular cavity size. There is mildly increased left ventricular wall thickness. The left ventricular systolic function is normal. The calculated ejection fraction is 59% by biplane method. There is no evidence of regional wall motion abnormalities. Diastolic function is normal for age. Right Ventricle Normal right ventricular cavity size and systolic function. Atria Both atria are normal in size. Aortic Valve The aortic valve was not well visualized. There is no aortic valve stenosis. There is no aortic valve regurgitation. Mitral Valve The mitral valve appears normal. There is no mitral valve regurgitation. There is no mitral valve stenosis. Pulmonic Valve The pulmonic valve is likely normal. Tricuspid Valve Normal tricuspid valve structure. There is no tricuspid valve regurgitation. Tricuspid regurgitation envelope is inadequate for calculation of right ventricular systolic pressure. Great Vessels The asc aorta is normal in size. Venous The inferior vena cava is normal in size and collapses greater than 50% with inspiration. Pericardium/Pleural There is no evidence of pericardial effusion. Prior Study Comparison No prior study available for comparison. Recommendations, Care & Conclusions No obvious valvular pathology seen on this study. Measurements 2D Linear Measurements IVSd: 1.33 0.6-0.9/0.6-1.0 cm LVIDd: 4.22 3.9-5.3/4.2-5.9 cm LVIDd Index: 1.94 2.4-3.2/2.2-3.1 cm/m2 LVIDs: 2.67 2.0-3.6 cm LVPWd: 1.18 0.7-1.1 cm LA Diam: 4.00 2.7-3.8/3.0-4.0 cm LAIDs Index: 1.83 1.5-2.3 cm/m2 LV Mass: 238.86 67-162/88-224 g LV Mass Index: 109.57 43-95/49-115 g/m2 LVOT Diam: 2.10 3.0+(-)1.3 cm 2D Systolic Function EF 4C: 61.20 >55% EF 2C: 59.70 >55% EF BiP: 58.90 >55% Mitral Valve MV Pk E: 0.77 MV PK A: 0.78 MV Decel Time: 249.00 E/A: 1.00 E'Lateral: 7.07 E'Medial: 7.40 E/E' Med: 10.40 E/E' Lat: 10.80 PHT: 73.00 MVA PHT: 3.01 Decel [place]: 3.09 Aortic Valve AoV Pk Eliot: 1.26 AoV Mn Eliot: 0.86 AoV VTI: 0.34 AoV Pk Grad: 6.00 Aov Mn Grad: 3.00 GERALDINE Cont.VTI: 2.16 LVOT LVOT Pk Eliot: 0.92 LVOT Mn Eliot: 0.69 LVOT VTI: 0.21 LVOT Pk Grad: 3.00 LVOT Mn Grad: 2.00 LVOT Diam: 2.10 LVOT Area: 3.46 Diastolic Function MV Pk E: 0.77 MV Pk A: 0.78 E/A: 1.00 E'Medial: 7.40 E/E' Med: 10.40 E' Laterial: 7.07 E/E' Lat: 10.80 Right Ventricle TAPSE (mm): 25.30 TVS' Eliot: 18.60 Tricuspid Valve RA Press: 3.00 Great Vessels Aorta Sinus of Valsalva: 3.41 2.0-3.[address] [place]: 3.19 1.7-3.4 cm Ao Asc: 3.70 2.1-3.4 cm Updated in Other Vendor System with Status of Final Modesto Briggs MD electronically signed on 10/06/2024 12:02:58 PM with status of Final
== END ==
LOC: HO.CARD 09:39
PROVIDERS: PCP Internal Medicine; Visit Provider Internal Medicine
DX: R00.2 Palpitations (principal)
CPT/HCPCS: 93242; 93306

== ENCOUNTER → 2024-10-06 09:45 | Outpatient (BNV) | payer MEDICARE, MEDICAID, SELFPAY | PROVIDERS: PCP Internal Medicine; Visit Provider Internal Medicine | DX: I47.10 Supraventricular tachycardia, unspecified (principal) | CPT/HCPCS: 93244; 93306 ==

== ENCOUNTER 2024-10-20 11:05 | Outpatient (REF) | payer MEDICARE, MEDICAID, SELFPAY ==
--- OUTSIDE RECORDS SUMMARY | 2024-10-20 12:20 | XMS_ITS | Clinical Summary ---
Author Organization [facility] [employer] Address [address] [place] [address] [address] [place] [address] Care Team Providers Care Control Panel Builder Name Role Phone Unavailable Primary Care Provider Unavailabl e Social History Tobacco Use Types Packs/Day Years Used Date Smoking Tobacco: Never Assessed Comments Unknown Sex and Gender Information Value Date Recorded Sex Assigned at Female 07/23/2022 10:34 AM EDT Legal Sex Female 10:34 AM EDT Gender Identity Female 07/23/2022 10:34 AM EDT Sexual Orientation Straight 07/23/2022 10 :34 AM EDT Plan of Treatment Health Maintenance Due Date Last Done Comments CT Colonography 1960 Colonoscopy 1960 Colorectal Cancer Screening 1960 Depression Screening 1960 FIT DNA/Cologuard 1960 FIT 1960 FOBT 1960 Sigmoidoscopy 1960 Alcohol/Substance Use Screening 1970 Tobacco Screening 1970 DTaP/Tdap/Td Vaccines (1 - Tdap) 1977 Mammogram 1998 Zoster Vaccines (1 of 2) 2008 Pneumococcal Vaccine: 65+ Ye ars (1 of 1 - PCV) 2023 COVID-19 Vaccine ( - 2023-2 5 season) 2024 Influenza Vaccine (#1) 2024 RSV Patients and Pa tients Aged 60 years or older (1 - 1-dose 75+ series) 2033 HIB Vaccines Aged Out No longer eligi ble based on patient's age to complete this topic HPV Vaccines Aged Out No longer eligi ble based on patient's age to complete this topic Hepatitis A Vaccines Aged Out No long er eligible based on patient's age to complete this topic Hepatitis B Vaccines Aged Out No long er eligible based on patient's age to complete this topic IPV Vaccines Aged Out No longer eligi ble based on patient's age to complete this topic Meningococcal Vaccine Aged Out No bishop curtis eligible based on patient's age to complete this topic RSV under 20 months Aged Out No longe r eligible based on patient's age to complete this topic Rotavirus Vaccines Aged Out No longer eligible based on patient's age to complete this topic
--- OUTSIDE RECORDS SUMMARY | 2024-10-20 12:20 | XMS_ITS | Encounter Summary ---
Author Organization [employer] [facility] Address [address] [place] [address] [address] [place] [address] Care Team Providers Care Customer Pricing Manager Name Role Phone Unavailable Primary Care Provider Unavailabl e Encounter Details Date Type Department Care Team (Latest Contact Info) Description 06/22/2019 Abstract [facility] CONVERSIONS Dental, Provider, DDS Social History Tobacco Use Types Packs/Day Years Used Date Smoking Tobacco: Never Assessed Comments Unknown Sex and Gender Information Value Date Recorded Sex Assigned at Female 07/23/2022 10:34 AM EDT Legal Sex Female 10:34 AM EDT Gender Identity Female 07/23/2022 10:34 AM EDT Sexual Orientation Straight 07/23/2022 10 :34 AM EDT documented as of this encounter Plan of Treatment Not on file documented as of this encounter Visit Diagnoses Not on filedocumented in this encounter
[2024-10-20 14:24] LABS: Alanine Aminotransferase 37 U/L (0-31); Albumin Level 3.9 g/dL (3.5-5.0); Alkaline Phosphatase 57 U/L (39-117); Anion Gap 10 (12-20); Aspartate Amino Transferase 26 U/L (5-31); Bilirubin Total 0.6 mg/dL (0.0-1.0); Blood Urea Nitrogen 12 mg/dL (9-16); Calcium 8.9 mg/dL (8.4-10.2); Carbon Dioxide 27 mmol/L (22-29); Chloride 108 mmol/L (96-108); Estimated Glomerular Filt Rate > 60; Glucose Random 88 mg/dL (60-115); Potassium 4.2 mmol/L (3.3-5.1); Sodium 141 mmol/L (135-145); Total Protein 7.1 g/dL (6.5-8.0)
[2024-10-20 14:29] LABS: TSH reflex Free T4 4.24 uIU/mL (0.32-4.0)
[2024-10-20 15:05] LABS: Free T4 (Free Thyroxine) 0.86 ng/dL (0.71-1.85)
== END 2024-10-20 11:06 | disposition home or self-care (01) ==
LOC: HO.HMGCLDS 11:05
PROVIDERS: PCP Internal Medicine; Visit Provider Internal Medicine
DX: R00.2 Palpitations (principal); E03.9 Hypothyroidism, unspecified
CPT/HCPCS: 36415; 80053; 84439; 84443

== ENCOUNTER 2024-10-23 10:27 | Outpatient (AMB) | payer MEDICARE, SELFPAY ==
--- NOTE | 2024-10-23 10:36 | MHC.PC.OV ---
Vital Signs 10/23/24 10:44 Height 5 ft 6 in Weight 243 lb BMI 39.2 BP 132/68 Blood Pressure Location Lt brachial Position Sitting Pulse 78 Pulse Source Pulse Oximeter Temp 99.3 F Temp Source Oral Pulse Oximetry (%) 97 Oxygen Delivery Method Room Air Intake Visit Reasons: 6 weeks follow up Intake Note: Pt is here today for 6 weeks follow up visit on HTN. Allergies sertraline [From Zoloft] Allergy (Intermediate, Verified 10/23/24 11:25) Muscle cramps pravastatin Adverse Reaction (Intermediate, Verified 10/23/24 10:44) myalgia naproxen Adverse Reaction (Verified 10/23/24 10:44) uclers sumatriptan [From Imitrex] Adverse Reaction (Verified 10/23/24 10:44) cluster migraine Medication List - Last Reconciled 10/23/24 by Di Mccarty MD levothyroxine 50 mcg PO DAILY meloxicam 15 mg PO DAILY PRN tramadol 50 mg PO Q12H PRN valsartan 80 mg PO DAILY Tobacco use date assessed: 10/23/24 Fall risk assessment: No Falls in past year Last assessed Fall Risk: 10/23/24 Dental Screening Dental Screen Date: 10/23/24 Did you have a dental visit in the last 12 months?: Yes Did you have a dental problem in the last 6 months where you did not have access to dental care?: No Was dental information given to patient?: Patient has dentist HPI 6 weeks follow up HPI Details Pt presents for f/u anxiety. Pt developed muscle cramps after 2 weeks of Zoloft and stopped taking it. Patient had echocardiogram and Holter monitor negative for symptoms of palpitations. She follows up with pain management for chronic lower back pain. Hypertension has been controlled on valsartan. [facility] Surgical History H/O wrist surgery Hx of tonsillectomy Hx of laparoscopic gastric banding Family History Father No problems noted. Mother Heart attack Dementia Diabetes Social History Household Members Other:: lives with 3 roomates, , on disability for lower back pain, Housing: House Patient Tobacco Use Status: Never used Tobacco e-Cigarette/Vaping Use: Never Used service: No Current occupational status: disabled Cognitive needs: No Hearing needs: No Vision needs: Yes Questionnaire PHQ-9 Over the last 2 weeks, how often have you been bothered by any of the following problems? 1. Little interest or pleasure in doing things: not at all 2. Feeling down, depressed, or hopeless: not at all 3. Trouble falling or staying asleep, or sleeping too much: not at all 4. Feeling tired or having little energy: not at all 5. Poor appetite or overeating: not at all 6. Feeling bad about yourself - or that you are a failure or have let yourself or your family down: not at all 7. Trouble concentrating on things, such as reading the newspaper or watching television: not at all 8. Moving or speaking so slowly that other people could have noticed. Or the opposite - being so fidgety or restless that you have been moving around a lot more than usual: not at all 9. Thoughts that you would be better off or of hurting yourself in some way: not at all Total score: 0 Depression Screening Interpretation: Negative Depression Screening Done: Yes [id number] - PHQ-9 Billing: Yes Source: Developed by Drs. Denzel Bueno, Joanna Drew, Tristen Porter and colleagues, with an educational little from [employer]. Thrive Questionnaire Date Thrive assessed: 10/23/24 I am a: Patient What is your living situation today?: I have a steady place to live Within the past 12 months, did the food you bought not last and you didn't have the money to get more?: Sometimes True Within the past 12 months, did you worry whether your food would run out before you got money to buy more?: Sometimes True Do you have trouble paying for medicines?: No Do you have trouble getting transportation to medical appointments?: No Do you have trouble paying your heating and electricity bill?: Yes Do you have trouble taking care of your child, family member or friend?: No Do you have trouble with day-to-day activities such as bathing, preparing meals, shopping, managing finances, etc.?: Yes Are you currently unemployed and looking for a job?: No Are you interested in more education?: No Please select the resources that you would like help with: None Currently or been in a relationship where the following occur: I choose not to answer THRIVE Score: 3 AUDIT C Alcohol Use Questionnaire (AUDIT-C) 1. How often do you have a drink containing alcohol?: Never 3. How often do you have six or more drinks on one occasion?: Never Total Score: 0 RICKY-7 AMB Questionnaire RICKY-7 Date RICKY - 7 assessed: 10/23/24 Feeling nervous, anxious, or on edge: 3 = Nearly every day Not being able to stop or control worryin = Several days Worrying too much about different things: 1 = Several days Trouble relaxin = Several days Being so restless that it is hard to sit still: 1 = Several days Becoming easily annoyed or irritable: 0 = Not at all Feeling afraid as if something awful might happen: 1 = Several days Total RICKY-7 score (0-4 normal; 5-9 mild; 10-14 moderate; 15-21 severe): 8 Source: Developed by Drs. Denzel Bueno, Joanna Drew, Tristen Porter and colleagues, with an educational little from [employer]. RICKY-7 Assessment Billing RICKY-7 Assessment Tool: RICKY-7 Assessment 00724 Review of Systems Const All systems reviewed & are unremarkable except as noted in HPI and below Eyes Reports no additional complaints ENT Reports no additional complaints Card Reports no additional complaints Resp Reports no additional complaints GI Reports no additional complaints Reports no additional complaints Physical exam (Primary Care) Vital Signs: Last Vital Signs Temp 99.3 F 10/23/24 10:44 Pulse 78 10/23/24 10:44 BP 132/68 10/23/24 10:44 Pulse Ox 97 10/23/24 10:44 Oxygen Delivery Method Room Air 10/23/24 10:44 BMI result Body Mass Index 39.2 Tobacco/Smoking Status: Tobacco use Status Tobacco use date assessed 10/23/24 10/23/24 10:46 Patient Tobacco Use Status Never used Tobacco 10/23/24 10:46 e-Cigarette/Vaping Use Never Used 10/23/24 10:36 PHQ-9: PHQ-9 Score PHQ-9: Total score 0 10/23/24 11:26 Depression Screening Interpretation: Negative Thrive Assessment: Date of Thrive Assessment Date Thrive assessed 10/23/24 10/23/24 10:46 Currently or been in a relationship where the following occur: I choose not to answer Const General: no acute distress HENMT Head: Yes normal to inspection Neck Neck: Yes supple Resp Effort & Inspection: normal respiratory effort Auscultation: clear to auscultation bilaterally Cardio Rhythm: regular rhythm Heart sounds: S1 normal heart sound present and S2 normal heart sound present GI Inspection: Yes normal to inspection Palpation (GI): Soft to palpation Percussion: Yes normal to percussion Auscultation: normal bowel sounds Coding Level of Care Code Est Pt Level 4 (23970) Diagnoses Hypothyroidism E03.9 Vitamin D deficiency E55.9 Hypertension, essential I10 Hyperlipidemia E78.5 Anxiety F41.9 Palpitations R00.2 Additional Codes RICKY-7 Assessment Billing - RICKY-7 Assessment Tool: RICKY-7 Assessment 68615 ([id number]) PHQ-9 - 51525 - PHQ-9 Billing: Yes ([id number]) Assessment & Plan Assessment & Plan (1) Hypothyroidism: Code(s): E03.9 - Hypothyroidism, unspecified Category: Medical Plan: Continue levothyroxine, increase to 1.5 tablet once a week and check TSH in 4 months. (2) Vitamin D deficiency: Code(s): E55.9 - Vitamin D deficiency, unspecified Category: Medical Plan: Continue vitamin-D (3) Hypertension, essential: Code(s): I10 - Essential (primary) hypertension Category: Medical Plan: Continue Valsartan (4) Hyperlipidemia: Code(s): E78.5 - Hyperlipidemia, unspecified Category: Medical Plan: Continue low-cholesterol diet return for physical in 4 months with a fasting labs before (5) Anxiety: Comment: Intolerant to Zoloft Code(s): F41.9 - Anxiety disorder, unspecified Category: Medical Plan: Stress management mindfulness and regular physical activity discussed with the patient. She declined seeing counselor (6) Palpitations: Comment: Normal EKG 08/2024, normal echo and Holter 09/2024 Code(s): R00.2 - Palpitations Category: Medical Plan: Negative cardiac workup Orders: Orders Comprehensive Noble. Panel Fast 4 Months E03.9 - Hypothyroidism, unspecified, E55.9 - Vitamin D deficiency, unspecified, E78.5 - Hyperlipidemia, unspecified, I10 - Essential (primary) hypertension Lipid Panel 4 Months E03.9 - Hypothyroidism, unspecified, E55.9 - Vitamin D deficiency, unspecified, E78.5 - Hyperlipidemia, unspecified, I10 - Essential (primary) hypertension TSH reflex Free T4 4 Months E03.9 - Hypothyroidism, unspecified, E55.9 - Vitamin D deficiency, unspecified, E78.5 - Hyperlipidemia, unspecified, I10 - Essential (primary) hypertension Vitamin D 25-OH Total 4 Months E03.9 - Hypothyroidism, unspecified, E55.9 - Vitamin D deficiency, unspecified, E78.5 - Hyperlipidemia, unspecified, I10 - Essential (primary) hypertension Complete Blood Count Auto Diff 4 Months E03.9 - Hypothyroidism, unspecified, E55.9 - Vitamin D deficiency, unspecified, E78.5 - Hyperlipidemia, unspecified, I10 - Essential (primary) hypertension Medications: Changed From levothyroxine 50 mcg PO DAILY 90 tabs 0RF To levothyroxine 1 and 1/2 one day a week, and 1 qd for the rest of week orally daily; 135 tabs 3RF
[2024-10-23 10:44] VITALS: BP 132/68; PULSE 78; TEMP 37.4; O2SAT 97; BMI 39.2
--- OUTSIDE RECORDS SUMMARY | 2024-10-23 11:10 | XMS_ITS | Encounter Summary ---
Author Organization [employer] [facility] Address [address] [place] [address] [address] [place] [address] Care Team Providers Care Engagement Manager Name Role Phone Unavailable Primary Care Provider Unavailabl e Encounter Details Date Type Department Care Team (Latest Contact Info) Description 06/22/2019 Abstract [facility] CONVERSIONS Dental, Provider, DDS Social History Tobacco [...]
--- OUTSIDE RECORDS SUMMARY | 2024-10-23 11:10 | XMS_ITS | Clinical Summary ---
Author Organization [facility] [employer] Address [address] [place] [address] [address] [place] [address] Care Team Providers Care Powdered Sugar Supervisor Name Role Phone Unavailable Primary Care Provider [...] Vaccines (1 - Tdap) 1977 Mammogram 1998 Pneumococcal Vaccine: 50+ Ye ars (1 of 1 - PCV) 2008 Zoster Vaccines (1 of 2) 2008 COVID-19 Vaccine ( - 2023-2 5 season) [...]
== END 2024-10-23 13:37 | disposition home or self-care (01) ==
PROVIDERS: PCP Internal Medicine; Visit Provider Internal Medicine
DX: E03.9 Hypothyroidism, unspecified (principal); E55.9 Vitamin D deficiency, unspecified; I10 Essential (primary) hypertension; E78.5 Hyperlipidemia, unspecified; F41.9 Anxiety disorder, unspecified; R00.2 Palpitations

== ENCOUNTER → 2024-10-23 10:27 | Outpatient (BNVA) | payer MEDICARE, OTHER, SELFPAY | PROVIDERS: PCP Internal Medicine; Visit Provider Internal Medicine | DX: R00.2 Palpitations (principal); E03.9 Hypothyroidism, unspecified; E55.9 Vitamin D deficiency, unspecified; I10 Essential (primary) hypertension; E78.5 Hyperlipidemia, unspecified; F41.9 Anxiety disorder, unspecified | CPT/HCPCS: 96127; 99212 ==

== ENCOUNTER 2024-12-03 17:46 | Outpatient (REF) | payer MEDICARE, SELFPAY ==
--- NOTE | ~2024-12-03 | MR_ITS ---
FINDINGS: MR THORACIC SPINE WITHOUT CONTRAST CLINICAL INFORMATION: Back pain with radiculopathy. Evaluate for arthritis versus disc herniation. COMPARISON: No prior MRI. X-ray thoracic spine 04/09/2024. TECHNIQUE: Multiplanar multisequence MR imaging of the thoracic spine was done without IV contrast. Exam performed on a 1.5 Sherry Siemens high-field magnet. FINDINGS: ALIGNMENT: There is a mild right convex scoliosis, apex at T6. There is a normal thoracic kyphosis. There is normal alignment without subluxation identified. VERTEBRAL BODIES AND BONE MARROW: There is now bone marrow edema in the thoracic region. There are fatty type endplate changes at T6-7. Incidentally noted is C6-7 there are edematous type endplate changes with a dorsal disc herniation which appears to mildly indent upon the cord. This is incompletely imaged. No suspicious bone lesion identified. Normal facet alignment. DISCS: There is moderate to severe disc degeneration focally at T6-7. There is moderate degeneration C5-6, T7-T10. There is otherwise only mild disc degeneration. SPINAL CORD: Normal in caliber throughout. There is no evidence of thoracic cord impingement. The conus terminates at the superior endplate of L1. There is focally subtle increased cord signal spanning the inferior endplate of T6 through the mid T7 level. This is nonspecific. There is also a focus of subtle increase Central cord signal at the superior endplate of T9. Differential mainly includes ischemic versus inflammatory demyelination. PARASPINAL SOFT TISSUES: No prevertebral and paravertebral soft tissues appear normal. The aorta is normal in caliber. There are no pleural effusions. SPINAL LEVELS: C7-T1: No significant central canal or neural foraminal narrowing. Normal facets. T1-T2: Small left paracentral disc protrusion. No significant mass effect upon the thecal sac. No central canal or neural foraminal narrowing. Normal facets. T2-T3: Trace disc bulge without mass effect. Mild facet degeneration. No central canal or neural foraminal narrowing. T3-T4: Trace disc bulge without mass effect. Mild facet degeneration. No central canal narrowing. There is mild bilateral neural foraminal narrowing. T4-T5: Trace disc bulge without mass effect. Mild facet degeneration. No central canal or neural foraminal narrowing. T5-T6: There is a left paracentral and lateral protrusion of disc material, as well as a right lateral protrusion. These indent upon the ventral thecal sac, approaching but do not definitively contact the cord. There is abundant preserved CSF space dorsal to the cord. There are mild degenerative facet changes. There is mild central canal narrowing, and mild left neural foraminal narrowing. T6-T7: There is a left lateral protrusion of disc material, minimally indenting upon the ventral lateral thecal sac. This does not contact or impingement of cord. There is mild central stenosis. There is mild to moderate left greater than right facet degeneration. There is mild left neural foraminal narrowing. T7-T8: Minimal disc bulge without mass effect. Mild bilateral facet degeneration. No central canal narrowing. There is mild left neural foraminal narrowing. T8-T9: Minimal disc bulge without mass effect. Mild bilateral facet degeneration. No central canal or neural foraminal narrowing. T9-T10: No central canal or neural foraminal narrowing. Mild facet degeneration. T10-T11: Trace disc bulge without significant mass effect. Mild left greater than right hypertrophic facet changes. No central canal narrowing. There is mild left and right neural foraminal narrowing. T11-T12: There is a small central disc extrusion with mild inferior migration. This indents upon the ventral thecal sac but does not contact the cord. There is no central canal narrowing. There are mild bilateral hypertrophic facet changes, without neural foraminal narrowing. T12-L1: No central canal or neural foraminal narrowing. There are mild to moderate degenerative hypertrophic facet changes. MR/MR thoracic spine wo con IMPRESSION: 1. Mild to moderate thoracic spondylosis. There is no thoracic cord impingement identified or moderate or high-grade central canal stenosis. No significant neural foraminal encroachment. See above for details. 2. Very subtle foci of increased cord signal identified at T6, T7, and the superior endplate of T9. Given there is no cord impingement at these levels, the main differential is inflammatory versus ischemic demyelination. Consider workup for multiple sclerosis. 3. Incidentally noted at C6-7, there are edematous endplate changes and a dorsal disc bulge appears to impinge upon the ventral cord. There is an associated right lateral disc extrusion with inferior migration at this level. This is incompletely imaged. Electronically signed by: Alvin Melendez MD 12/04/2024 11:26 AM EDT
--- OUTSIDE RECORDS SUMMARY | 2024-12-03 19:32 | XMS_ITS | Encounter Summary ---
Author Organization [employer] [facility] Address [address] [place] [address] [address] [place] [address] Care Team Providers Care Sales Merchandising Specialist Name Role Phone Unavailable Primary Care Provider Unavailabl e Encounter Details Date Type Department Care Team (Latest Contact Info) Description 06/22/2019 Abstract [facility] CONVERSIONS Dental, Provider, DDS Social History Tobacco [...]
--- OUTSIDE RECORDS SUMMARY | 2024-12-03 19:32 | XMS_ITS | Clinical Summary ---
Author Organization [facility] [employer] Address [address] [place] [address] [address] [place] [address] Care Team Providers Care Magnesium Mill Operator Name Role Phone Unavailable Primary Care Provider [...]
== END 2024-12-03 17:47 | disposition home or self-care (01) ==
LOC: HO.MRI 17:46
PROVIDERS: PCP Internal Medicine; Visit Provider Physical Medicine & Rehabilitation
DX: M51.24 Other intervertebral disc displacement, thoracic region (principal)
CPT/HCPCS: 72146

== ENCOUNTER → 2024-12-03 17:54 | Outpatient (BNV) | payer MEDICARE, SELFPAY | PROVIDERS: PCP Internal Medicine; Visit Provider Radiology Diagnostic Radiology | DX: M54.14 Radiculopathy, thoracic region (principal) | CPT/HCPCS: 72146 ==

== ENCOUNTER 2024-12-15 11:59 | Outpatient (AMB) | payer MEDICARE, SELFPAY ==
--- NOTE | 2024-12-15 12:01 | AM.OFFWIN_ITS ---
Intake Vital Signs 12/15/24 12:09 Height 5 ft 6 in Weight 243 lb BMI 39.2 BP 130/80 Blood Pressure Location Lt brachial Position Sitting Pulse 82 Pulse Source Pulse Oximeter Temp 98.8 F Temp Source Oral Pulse Oximetry (%) 98 Oxygen Delivery Method Room Air Intake Visit Reasons: EP-body weak, no energy, sob, ?uti Patient Tobacco Use Status: Never used Tobacco Accompanied by: Self / Same As Patient Allergies sertraline [From Zoloft] Allergy (Intermediate, Verified 12/15/24 12:09) Muscle cramps pravastatin Adverse Reaction (Intermediate, Verified 12/15/24 12:09) myalgia naproxen Adverse Reaction (Verified 12/15/24 12:09) uclers sumatriptan [From Imitrex] Adverse Reaction (Verified 12/15/24 12:09) cluster migraine Do you need a note to return to daycare/school/sports/work: No HPI HPI Comments History of Present Illness Details This is a 64-year-old female with a past medical history of hypothyroidism,arthritis, chronic back pain treated with steroid injections through pain management, hyperlipidemia and hypertension presenting for evaluation of generalized weakness, urinary frequency in his strong odor to her urine that has been ongoing for the past 3-4 weeks. Patient also states that her thyroid medication was changed ?a few months ago? and has not yet been rechecked. Patient is concerned that she may have a urinary tract infection. Patient denies having any fevers, chills, abdominal pain, back pain or dysuria. Patient has sex appointment with her primary care physician is in January 2025. [facility] Surgical History H/O wrist surgery Hx of tonsillectomy Hx of laparoscopic gastric banding Family History Father No problems noted. Mother Heart attack Dementia Diabetes Social History Household Members Other:: lives with 3 roomates, , on disability for lower back pain, Housing: House Patient Tobacco Use Status: Never used Tobacco e-Cigarette/Vaping Use: Never Used service: No Current occupational status: disabled Cognitive needs: No Hearing needs: No Vision needs: Yes Review of Systems Const All systems reviewed & are unremarkable except as noted in HPI and below Denies chills, Denies fatigue, Denies fever(s), Denies headache(s), Reports lethargy and Reports weakness Eyes Reports no additional complaints ENT Reports no additional complaints and Denies headache(s) Card Reports no additional complaints Resp Reports no additional complaints GI Reports no additional complaints, Denies diarrhea, Denies nausea and Denies vomiting Reports no additional complaints, Denies hematuria, Denies dysuria, Denies urinary incontinence, Denies urinary hesitancy, Reports urinary urgency and Reports other (foul smelling urine) Musc Reports no additional complaints and Reports back pain (chronic) Skin/Breast Reports system reviewed and no additional complaints, except as documented Neuro Reports no additional complaints, Denies headache(s) and Reports weakness Psych Reports no additional complaints Endo Denies fatigue Randy/Lymph Reports no additional complaints Aller/Immun Reports no additional complaints Physical Exam Vital Signs: Last Vital Signs Temp 98.8 F 12/15/24 12:09 Pulse 82 12/15/24 12:09 BP 130/80 12/15/24 12:09 Pulse Ox 98 12/15/24 12:09 Oxygen Delivery Method Room Air 12/15/24 12:09 BMI result Body Mass Index 39.2 Const General: cooperative, no acute distress, well developed, alert and awake Nutritional Appearance: obese Orientation/consciousness: patient oriented x3 Limitations: no limitations Resp Effort & Inspection: normal respiratory effort, able to speak in complete sentences, no audible wheezes and no cough Auscultation: clear to auscultation bilaterally Cardio Rate: regular rate Rhythm: regular rhythm GI Inspection: Yes normal to inspection Palpation (GI): Soft to palpation, nontender, no guarding and not rigid Percussion: Yes normal to percussion General: Yes Bimanual renal exam normal bilaterally, Yes bladder normal to palpation and Yes no CVA tenderness Bimanual exam- vagina & uterus: bladder normal to palpation Back/Spine/Pelvis Back: no CVA tenderness Skin General skin exam: no rashes or lesions noted Neuro General: patient oriented x3 Psych Appearance: grossly normal Mental Status: mental status grossly normal Insight: Good insight present (Psych) Judgement: Good judgement present (Psych) Results AMB Urinalysis, Automated UA Leukoctes 0 Mary/uL Last Edit by Marc Kan CMA on 12/15/24 12:59 UA Nitrite Negative Last Edit by Marc Kan CMA on 12/15/24 12:59 UA Urobilinogen 0.2 mg/dL Last Edit by Marc Kan CMA on 12/15/24 12 :59 UA Protein 0 mg/dL Last Edit by Marc Kan CMA on 12/15/24 12:59 UA pH 6.0 Last Edit by Marc Kan CMA on 12/15/24 12:59 UA Blood 0 Serafin/uL Last Edit by Marc Kan CMA on 12/15/24 12:59 UA Specific Merigold 1.030 Last Edit by Marc Kan CMA on 12/15/24 12:59 UA Ketone Negative Last Edit by Marc Kan CMA on 12/15/24 12:59 UA Bilirubin 0 mg/dL Last Edit by Marc Kan CMA on 12/15/24 12:59 UA Glucose 0 mg/dL Last Edit by Marc Kan CMA on 12/15/24 12:59 Results Reviewed Results Reviewed: Urinalysis is reviewed. There is no clinical indication of an acute urinary tract infection. Assessment & Plan Assessment & Plan (1) Urinary frequency: Comment: Urinalysis is not consistent with an acute urinary tract infection. Code(s): R35.0 - Frequency of micturition Plan: Follow up with PCP as an outpatient. (2) Weakness: Comment: Patient is unable to provide chronicity of her generalized weakness. Patient does not have a follow up appointment with her pain management provider at this time. Vital signs are within normal limits. Code(s): R53.1 - Weakness Plan: Follow up with PCP as an outpatient. Patient is encouraged to schedule an appointment sooner than her January 2025 follow up. Orders: Orders Urine Culture Today R35.0 - Frequency of micturition AMB Urinalysis Auto Microscop. Today R35.0 - Frequency of micturition Coding Level of Care Code Est Pt Level 3 (25553) Diagnoses Urinary frequency R35.0 Weakness R53.1 Time Spent (min) 25
[2024-12-15 12:09] VITALS: BP 130/80; PULSE 82; TEMP 37.1; O2SAT 98; BMI 39.2
--- OUTSIDE RECORDS SUMMARY | 2024-12-15 14:46 | XMS_ITS | Encounter Summary ---
Author Organization [employer] [facility] Address [address] [place] [address] [address] [place] [address] Care Team Providers Care Acquisition Specialist Name Role Phone Unavailable Primary Care Provider Unavailabl e Encounter Details Date Type Department Care Team (Latest Contact Info) Description 06/22/2019 Abstract [facility] CONVERSIONS Dental, Provider, DDS Social History Tobacco [...]
--- OUTSIDE RECORDS SUMMARY | 2024-12-15 14:46 | XMS_ITS | Clinical Summary ---
Author Organization [facility] [employer] Address [address] [place] [address] [address] [place] [address] Care Team Providers Care Sticker On Name Role Phone Unavailable Primary Care Provider [...]
== END 2024-12-15 13:07 | disposition home or self-care (01) ==
PROVIDERS: PCP Internal Medicine; Visit Provider Physician Assistant
DX: R35.0 Frequency of micturition (principal); R53.1 Weakness; Z13.9 Encounter for screening, unspecified

== ENCOUNTER → 2024-12-15 11:59 | Outpatient (BNVA) | payer MEDICARE, SELFPAY | PROVIDERS: PCP Internal Medicine; Visit Provider Physician Assistant | DX: R35.0 Frequency of micturition (principal); R53.1 Weakness | CPT/HCPCS: 81003; 99212 ==

== ENCOUNTER 2024-12-22 08:41 | Outpatient (REF) | payer MEDICARE, SELFPAY ==
--- OUTSIDE RECORDS SUMMARY | 2024-12-22 09:06 | XMS_ITS | Encounter Summary ---
Author Organization [employer] [facility] Address [address] [place] [address] [address] [place] [address] Care Team Providers Care Spar Machine Operator Name Role Phone Unavailable Primary Care Provider Unavailabl e Encounter Details Date Type Department Care Team (Latest Contact Info) Description 06/22/2019 Abstract [facility] CONVERSIONS Dental, Provider, DDS Social History [...]
--- OUTSIDE RECORDS SUMMARY | 2024-12-22 09:06 | XMS_ITS | Clinical Summary ---
Author Organization [facility] [employer] Address [address] [place] [address] [address] [place] [address] Care Team Providers Care Java Websphere Developer Name Role Phone Unavailable Primary Care Provider [...]
[2024-12-22 10:34] LABS: MANUAL DIFF FLAG NO
[2024-12-22 10:46] LABS: Basophils Percent Auto 0.4 % (0-2); Eosinophils Absolute Auto 0.1 X10*3/uL (0.0-0.4); Eosinophils Percent Auto 1.3 % (0-4); Hematocrit 43.3 % (37.0-47.0); Hemoglobin 14.8 g/dl (12.0-16.0); Imm Gran Abs Auto 0.02 X10*3/uL (0.00-0.03); Imm Gran Pct Auto 0.3 % (0.0-0.4); Lymphocytes Absolute Auto 1.7 X10*3/uL (1.2-4.9); Lymphocytes Percent Auto 25.2 % (20-40); Mean Corpuscular HGB Conc 34.2 g/dl (31.0-35.0); Mean Corpuscular Volume 90.6 fL (80.0-98.0); Mean Platelet Volume 9.1 fL (9.4-12.3); Monocytes Absolute Auto 0.7 X10*3/uL (0.1-1.2); Monocytes Percent Auto 9.8 % (2-11); Neutrophils Absolute Auto 4.3 x10*3/uL (2.0-8.3); Platelet Count 269 X10*3/uL (160-400); Red Blood Count 4.78 X10*6/uL (4.20-5.50); Red Cell Distribution Width 13.7 % (11.0-16.0); White Blood Count 6.8 X10*3/uL (4.8-10.8)
[2024-12-22 11:25] LABS: Erythrocyte Sedimentation Rate 7 MM/HR (0-20); Folate 6.6 ng/mL (> or = 4.0); Vitamin B12 287 pg/mL (200-900)
[2024-12-22 11:33] LABS: Alanine Aminotransferase 24 U/L (0-31); Albumin Level 3.6 g/dL (3.5-5.0); Alkaline Phosphatase 42 U/L (39-117); Anion Gap 9 (12-20); Aspartate Amino Transferase 29 U/L (5-31); Bilirubin Total 0.5 mg/dL (0.0-1.0); Blood Urea Nitrogen 13 mg/dL (9-16); Calcium 8.8 mg/dL (8.4-10.2); Carbon Dioxide 24 mmol/L (22-29); Chloride 111 mmol/L (96-108); Cholesterol 206 mg/dL (<200); Estimated Glomerular Filt Rate > 60; Glucose Fasting 101 mg/dL (60-99); HDL Cholesterol 48 mg/dL (>40); Iron 112 mcg/dL (30-160); LDL Cholesterol Calculated 135 mg/dL (<100); Percent Iron Saturation 38 % (15-50); Potassium 4.2 mmol/L (3.3-5.1); Sodium 140 mmol/L (135-145); TSH reflex Free T4 3.58 uIU/mL (0.32-4.0); Total Iron Binding Capacity 297 mcg/dL (228-428); Triglycerides 119 mg/dL (<150); Unsaturated Iron Binding 185 ug/dL; Vitamin D 25-OH Total 26.5 ng/mL (>30)
== END 2024-12-22 08:42 | disposition home or self-care (01) ==
LOC: HO.HMGCLDS 08:41
PROVIDERS: PCP Internal Medicine; Visit Provider Internal Medicine
DX: R53.1 Weakness (principal); E03.9 Hypothyroidism, unspecified; E78.5 Hyperlipidemia, unspecified; E55.9 Vitamin D deficiency, unspecified
CPT/HCPCS: 36415; 80053; 80061; 82306; 82607; 82746; 83540; 84443; 85025; 85652

== ENCOUNTER 2024-12-25 09:40 | Outpatient (AMB) | payer MEDICARE, SELFPAY ==
[2024-12-25 10:03] VITALS: BP 140/78; PULSE 89; RESP 20; TEMP 37.1; O2SAT 97; BMI 40.3
--- NOTE | 2024-12-25 10:03 | MHC.PC.OV ---
Vital Signs 12/25/24 10:03 Height 5 ft 6 in Weight 250 lb BMI 40.3 BP 140/78 H Blood Pressure Location Lt brachial Position Sitting Respiration 20 Pulse 89 Pulse Source Pulse Oximeter Temp 98.8 F Temp Source Oral Pulse Oximetry (%) 97 Oxygen Delivery Method Room Air Intake Visit Reasons: F/U- [place] visit Allergies sertraline [From Zoloft] Allergy (Intermediate, Verified 12/25/24 10:05) Muscle cramps pravastatin Adverse Reaction (Intermediate, Verified 12/25/24 10:05) myalgia valsartan Adverse Reaction (Intermediate, Verified 12/25/24 10:31) dyspnea naproxen Adverse Reaction (Verified 12/25/24 10:05) uclers sumatriptan [From Imitrex] Adverse Reaction (Verified 12/25/24 10:05) cluster migraine Medication List - Last Reconciled 12/25/24 by Di Mccarty MD levothyroxine 1 and 1/2 one day a week, and 1 qd for the rest of week orally daily; tramadol 50 mg PO Q12H PRN Tobacco use date assessed: 12/25/24 Dental Screening Dental Screen Date: 10/23/24 HPI F/U- [place] visit HPI Details Patient presents for the follow-up of hypertension. She could not tolerate valsartan developed dyspnea on exertion and chest pain resolved after patient has stopped taking the medication. She has been trying to be more physically active and follow low sodium diet. Patient has been taking levothyroxine for hypothyroidism. [facility] Surgical History H/O wrist surgery Hx of tonsillectomy Hx of laparoscopic gastric banding Family History Father No problems noted. Mother Heart attack Dementia Diabetes Social History Household Members Other:: lives with 3 roomates, , on disability for lower back pain, Housing: House Patient Tobacco Use Status: Never used Tobacco e-Cigarette/Vaping Use: Never Used service: No Current occupational status: disabled Cognitive needs: No Hearing needs: No Vision needs: Yes Questionnaire Thrive Questionnaire Date Thrive assessed: 10/17/24 I am a: Patient What is your living situation today?: I have a steady place to live Within the past 12 months, did the food you bought not last and you didn't have the money to get more?: Sometimes True Within the past 12 months, did you worry whether your food would run out before you got money to buy more?: Sometimes True Do you have trouble paying for medicines?: No Do you have trouble getting transportation to medical appointments?: No Do you have trouble paying your heating and electricity bill?: Yes Do you have trouble taking care of your child, family member or friend?: No Do you have trouble with day-to-day activities such as bathing, preparing meals, shopping, managing finances, etc.?: Yes Are you currently unemployed and looking for a job?: No Are you interested in more education?: No Please select the resources that you would like help with: None Currently or been in a relationship where the following occur: I choose not to answer THRIVE Score: 3 RICKY-7 AMB Questionnaire RICKY-7 Date RICKY - 7 assessed: 10/23/24 Source: Developed by Drs. Denzel Bueno, Joanna Drew, Tristen Porter and colleagues, with an educational little from [employer] Review of Systems Const All systems reviewed & are unremarkable except as noted in HPI and below Eyes Reports no additional complaints ENT Reports no additional complaints Card Reports no additional complaints Resp Reports no additional complaints GI Reports no additional complaints Reports no additional complaints Physical exam (Primary Care) Vital Signs: Last Vital Signs Temp 98.8 F 12/25/24 10:03 Pulse 89 12/25/24 10:03 Resp 20 12/25/24 10:03 BP 140/78 H 12/25/24 10:03 Pulse Ox 97 12/25/24 10:03 Oxygen Delivery Method Room Air 12/25/24 10:03 BMI result Body Mass Index 40.3 Tobacco/Smoking Status: Tobacco use Status Tobacco use date assessed 12/25/24 12/25/24 10:08 Patient Tobacco Use Status Never used Tobacco 12/25/24 10:08 e-Cigarette/Vaping Use Never Used 12/25/24 10:08 Thrive Assessment: Date of Thrive Assessment Date Thrive assessed 10/17/24 12/25/24 10:08 Currently or been in a relationship where the following occur: I choose not to answer Const General: no acute distress HENMT Ears: hearing grossly normal bilaterally Resp Effort & Inspection: normal respiratory effort Auscultation: clear to auscultation bilaterally Cardio Rhythm: regular rhythm Heart sounds: S1 normal heart sound present and S2 normal heart sound present GI Inspection: Yes normal to inspection Palpation (GI): Soft to palpation Percussion: Yes normal to percussion Auscultation: normal bowel sounds Coding Level of Care Code Est Pt Level 4 (62877) Diagnoses Hypertension, essential I10 Overweight E66.3 Hypothyroidism E03.9 Assessment & Plan Assessment & Plan (1) Hypertension, essential: Comment: Intolerant to valsartan caused dyspnea on exertion, patient refuses to take medications 12/2024 Code(s): I10 - Essential (primary) hypertension Category: Medical Plan: Continue low-sodium diet increase physical activity weight loss discussed with the patient. She refused to take medications for hypertension (2) Overweight: Code(s): E66.3 - Overweight Category: Medical Plan: Decrease caloric intake increasing physical activity (3) Hypothyroidism: Code(s): E03.9 - Hypothyroidism, unspecified Category: Medical Plan: Continue levothyroxine Medications: Discontinued valsartan Discontinued Reason: Doctor's Order 80 mg PO DAILY 90 tabs 3RF
--- OUTSIDE RECORDS SUMMARY | 2024-12-25 10:44 | XMS_ITS | Clinical Summary ---
Author Organization [employer] Address [address] [place] [address] [address] [place] [address] Care Team Providers Care Building Trades Instructor Name Role Phone Unavailable Primary Care Provider [...]
--- OUTSIDE RECORDS SUMMARY | 2024-12-25 10:44 | XMS_ITS | Encounter Summary ---
Author Organization [employer] [facility] Address [address] [place] [address] [address] [place] [address] Care Team Providers Care Private Advisor Name Role Phone Unavailable Primary Care Provider Unavailabl e Encounter Details Date Type Department Care Team (Latest Contact Info) Description 06/22/2019 Abstract [facility] CONVERSIONS Dental, Provider, DDS Social History [...]
== END 2024-12-25 13:56 | disposition home or self-care (01) ==
LOC: HO.HMCC 09:41
PROVIDERS: PCP Internal Medicine; Visit Provider Internal Medicine
DX: I10 Essential (primary) hypertension (principal); E66.3 Overweight; E03.9 Hypothyroidism, unspecified

== ENCOUNTER → 2024-12-25 09:40 | Outpatient (BNVA) | payer MEDICARE, SELFPAY | PROVIDERS: PCP Internal Medicine; Visit Provider Internal Medicine | DX: I10 Essential (primary) hypertension (principal); E66.3 Overweight; E03.9 Hypothyroidism, unspecified | CPT/HCPCS: 99212 ==

== ENCOUNTER 2025-05-28 11:20 | Outpatient (AMB) | payer MEDICARE, SELFPAY ==
--- NOTE | 2025-05-28 11:43 | A.OFFPC_ITS ---
Vital Signs 05/28/25 11:44 Height 5 ft 6 in Weight 252 lb BMI 40.7 BP 132/80 Blood Pressure Location Lt brachial Position Sitting Respiration 20 Pulse 91 Pulse Source Pulse Oximeter Temp 98.7 F Temp Source Oral Pulse Oximetry (%) 95 Oxygen Delivery Method Room Air Intake Visit Reasons: PE Intake Note: Pt is here today for PE. Allergies sertraline (From Zoloft) Allergy (Intermediate, Verified 05/28/25 11:46) Muscle cramps pravastatin Adverse Reaction (Intermediate, Verified 05/28/25 11:46) myalgia valsartan Adverse Reaction (Intermediate, Verified 05/28/25 11:46) dyspnea naproxen Adverse Reaction (Verified 05/28/25 11:46) uclers sumatriptan (From Imitrex) Adverse Reaction (Verified 05/28/25 11:46) cluster migraine Medication List - Last Reconciled 05/28/25 by Di Mccarty MD levothyroxine 1 and 1/2 one day a week, and 1 qd for the rest of week orally daily; tramadol 50 mg PO Q12H PRN Tobacco use date assessed: 05/28/25 Fall risk assessment: No Falls in past year Last assessed Fall Risk: 05/28/25 Dental Screening Dental Screen Date: 05/28/25 Did you have a dental visit in the last 12 months?: Yes Did you have a dental problem in the last 6 months where you did not have access to dental care?: No Was dental information given to patient?: Patient has dentist HPI PE HPI Details Pt presents for PE. PFSH Medical History (Updated 05/28/25 @ 20:38 by Di Mccarty MD) Colonoscopy refused Lower back pain Hypothyroidism Hyperlipidemia Obesity due to excess calories Surgical History H/O wrist surgery Hx of tonsillectomy Hx of laparoscopic gastric banding Family History Father No problems noted. Mother Heart attack Dementia Diabetes Social History Household Members Other:: lives with 3 roomates, , on disability for lower back pain, Housing: House Patient Tobacco Use Status: Never used Tobacco e-Cigarette/Vaping Use: Never Used service: No Current occupational status: disabled Cognitive needs: No Hearing needs: No Vision needs: Yes Questionnaire PHQ-9 Over the last 2 weeks, how often have you been bothered by any of the following problems? 1. Little interest or pleasure in doing things: not at all 2. Feeling down, depressed, or hopeless: not at all 3. Trouble falling or staying asleep, or sleeping too much: not at all 4. Feeling tired or having little energy: not at all 5. Poor appetite or overeating: not at all 6. Feeling bad about yourself - or that you are a failure or have let yourself or your family down: not at all 7. Trouble concentrating on things, such as reading the newspaper or watching television: not at all 8. Moving or speaking so slowly that other people could have noticed. Or the opposite - being so fidgety or restless that you have been moving around a lot more than usual: not at all 9. Thoughts that you would be better off or of hurting yourself in some way: not at all Total score: 0 Depression Screening Interpretation: Negative Depression Screening Done: Yes 94959 - PHQ-9 Billing: Yes Source: Developed by Drs. Denzel Bueno, Joanna Drew, Tristen Porter and colleagues, with an educational little from [employer]. Thrive Questionnaire Date Thrive assessed: 05/28/25 I am a: Patient What is your living situation today?: I have a steady place to live Within the past 12 months, did the food you bought not last and you didn't have the money to get more?: Sometimes True Within the past 12 months, did you worry whether your food would run out before you got money to buy more?: Sometimes True Do you have trouble paying for medicines?: No Do you have trouble getting transportation to medical appointments?: No Do you have trouble paying your heating and electricity bill?: Yes Do you have trouble taking care of your child, family member or friend?: No Do you have trouble with day-to-day activities such as bathing, preparing meals, shopping, managing finances, etc.?: Yes Are you currently unemployed and looking for a job?: No Are you interested in more education?: No Please select the resources that you would like help with: None Currently or been in a relationship where the following occur: I choose not to answer THRIVE Score: 3 AUDIT C Alcohol Use Questionnaire (AUDIT-C) 1. How often do you have a drink containing alcohol?: Never 3. How often do you have six or more drinks on one occasion?: Never Total Score: 0 RICKY-7 AMB Questionnaire RICKY-7 Date RICKY - 7 assessed: 05/28/25 Feeling nervous, anxious, or on edge: 0 = Not at all Not being able to stop or control worryin = Not at all Worrying too much about different things: 0 = Not at all Trouble relaxin = Not at all Being so restless that it is hard to sit still: 0 = Not at all Becoming easily annoyed or irritable: 0 = Not at all Feeling afraid as if something awful might happen: 0 = Not at all Total RICKY-7 score (0-4 normal; 5-9 mild; 10-14 moderate; 15-21 severe): 0 Source: Developed by Drs. Denzel Bueno, Joanna Drew, Tristen Porter and colleagues, with an educational little from [employer]. RICKY-7 Assessment Billing RICKY-7 Assessment Tool: RICKY-7 Assessment 40321 Review of Systems Const All systems reviewed & are unremarkable except as noted in HPI and below Eyes Reports no additional complaints ENT Reports no additional complaints Card Reports no additional complaints Resp Reports no additional complaints GI Reports no additional complaints Reports no additional complaints Physical exam (Primary Care) Vital Signs: Last Vital Signs Temp 98.7 F 05/28/25 11:44 Pulse 91 05/28/25 11:44 Resp 20 05/28/25 11:44 BP 132/80 05/28/25 11:44 Pulse Ox 95 05/28/25 11:44 Oxygen Delivery Method Room Air 05/28/25 11:44 BMI result Body Mass Index 40.7 Tobacco/Smoking Status: Tobacco use Status Tobacco use date assessed 05/28/25 05/28/25 11:48 Patient Tobacco Use Status Never used Tobacco 05/28/25 11:48 e-Cigarette/Vaping Use Never Used 05/28/25 11:44 PHQ-9: PHQ-9 Score PHQ-9: Total score 0 09/05/25 12:24 Depression Screening Interpretation: Negative Thrive Assessment: Date of Thrive Assessment Date Thrive assessed 05/28/25 05/28/25 11:54 Currently or been in a relationship where the following occur: I choose not to answer Const General: no acute distress HENMT Head: Yes normal to inspection Face and sinus: Yes normal facial exam Mouth: Normal oral and palatal mucosa present Eyes General: appearance normal, both eyes and all related structures Neck Neck: Yes no lymphadenopathy and Yes supple Resp Effort & Inspection: normal respiratory effort Auscultation: clear to auscultation bilaterally Cardio Rhythm: regular rhythm Heart sounds: S1 normal heart sound present and S2 normal heart sound present GI Inspection: Yes normal to inspection Palpation (GI): Soft to palpation Percussion: Yes normal to percussion Auscultation: normal bowel sounds Coding Level of Care Code Est Pt Prev Care >65y(39906) Diagnoses Hypothyroidism E03.9 Class 2 severe obesity due to excess calories with serious comorbidity and body mass index (BMI) of 37.0 to 37.9 in adult E66.01; Z68.37 Obesity classification: adult class 2 (BMI 35 - 39.9) Serious obesity comorbidity presence: with serious comorbidity Body mass index: BMI 37.0-37.9 Chronic midline low back pain with bilateral sciatica M54.41; M54.42; G89.29 Chronicity: chronic Back pain laterality: midline Sciatica presence: with sciatica Sciatica laterality: bilateral sciatica Annual physical exam Z00.00 Colonoscopy refused Z53.20 Additional Codes RICKY-7 Assessment Billing - RICKY-7 Assessment Tool: RICKY-7 Assessment 62387 ([id number]) PHQ-9 - 35407 - PHQ-9 Billing: Yes ([id number]) Assessment & Plan Assessment & Plan (1) Hypothyroidism: Code(s): E03.9 - Hypothyroidism, unspecified Category: Medical Plan: Continue levothyroxine (2) Obesity due to excess calories: Comment: BMI 40 Code(s): E66.09 - Other obesity due to excess calories Category: Medical Qualifiers: Obesity classification: adult class 2 (BMI 35 - 39.9) Serious obesity comorbidity presence: with serious comorbidity Body mass index: BMI 37.0-37.9 Qualified Code(s): E66.01 - Morbid (severe) obesity due to excess calories; Z68.37 - Body mass index [BMI] 37.0-37.9, adult Plan: Decrease caloric intake increasing physical activity discussed with the (3) Lower back pain: Comment: 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 Mcclendon prescribes Tramadol Code(s): M54.50 - Low back pain, unspecified Category: Medical Qualifiers: Chronicity: chronic Back pain laterality: midline Sciatica presence: with sciatica Sciatica laterality: bilateral sciatica Qualified Code(s): M54.41 - Lumbago with sciatica, right side; M54.42 - Lumbago with sciatica, left side; G89.29 - Other chronic pain Plan: Follows up with [facility] (4) Annual physical exam: Code(s): Z00.00 - Encounter for general adult medical examination without abnormal findings Category: Medical Plan: Well-balanced diet regular physical activity discussed with the patient. Patient will schedule mammogram (5) Colonoscopy refused: Comment: 01/13, negative Cologuard December 2023 Code(s): Z53.20 - Procedure and treatment not carried out because of patient's decision for unspecified reasons Category: Medical Plan: Negative colon cancer screening last year
[2025-05-28 11:44] VITALS: BP 132/80; PULSE 91; RESP 20; TEMP 37.1; O2SAT 95; BMI 40.7
--- OUTSIDE RECORDS SUMMARY | 2025-05-28 12:22 | XMS_ITS ---
Author Name [facility] Organization Unknown Care Team Organization Name Specialty Phone Email Start Date End Da te [facility] Nancy Otero [facility] 07/31/2022
--- OUTSIDE RECORDS SUMMARY | 2025-05-28 12:22 | XMS_ITS | Clinical Summary ---
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
--- OUTSIDE RECORDS SUMMARY | 2025-05-28 12:22 | XMS_ITS | Encounter Summary ---
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
== END 2025-05-28 12:36 | disposition home or self-care (01) ==
LOC: HO.HMCC 11:21
PROVIDERS: PCP Internal Medicine; Visit Provider Internal Medicine
DX: Z00.00 Encounter for general adult medical examination without abnormal findings (principal); E03.9 Hypothyroidism, unspecified; E66.01 Morbid (severe) obesity due to excess calories; Z68.37 Body mass index [BMI] 37.0-37.9, adult; M54.41 Lumbago with sciatica, right side; M54.42 Lumbago with sciatica, left side; G89.29 Other chronic pain; Z53.20 Procedure and treatment not carried out because of patient's decision for unspecified reasons

== ENCOUNTER → 2025-05-28 11:20 | Outpatient (BNVA) | payer MEDICARE, OTHER, SELFPAY | PROVIDERS: PCP Internal Medicine; Visit Provider Internal Medicine | DX: Z00.00 Encounter for general adult medical examination without abnormal findings (principal); E03.9 Hypothyroidism, unspecified; E66.01 Morbid (severe) obesity due to excess calories; M54.41 Lumbago with sciatica, right side; M54.42 Lumbago with sciatica, left side; G89.29 Other chronic pain; Z68.37 Body mass index [BMI] 37.0-37.9, adult | CPT/HCPCS: 96127; 99397 ==

== ENCOUNTER 2025-09-02 11:14 | Outpatient (AMB) | payer MEDICARE, SELFPAY ==
--- NOTE | 2025-09-02 11:28 | A.PHYSOV ---
Vital Signs 09/02/25 11:30 Height 5 ft 6 in Weight 243 lb BMI 39.2 Intake Visit Reasons: Re-eval for back pain Intake Note: Patient is a 65 year old female in office today for a follow up visit to discuss her low back pain. Stop pregabalin gave her migraine. Gabpentin made her face swell and rash. 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 Allergies sertraline (From Zoloft) Allergy (Intermediate, Verified 09/02/25 11:28) Muscle cramps gabapentin Allergy (Unknown, Verified 09/02/25 11:33) Rash pravastatin Adverse Reaction (Intermediate, Verified 09/02/25 11:28) myalgia valsartan Adverse Reaction (Intermediate, Verified 09/02/25 11:28) dyspnea naproxen Adverse Reaction (Verified 09/02/25 11:28) uclers sumatriptan (From Imitrex) Adverse Reaction (Verified 09/02/25 11:28) cluster migraine HPI Comments Details: History of Present Illness The patient is a 65 year old female presenting for a follow-up visit for persistent lower back pain. She has a history of multiple lumbar injections, with the most recent procedure being a right L5 and L6 (S1) injection on November 06, 2024. The patient began complaining of increasing neck pain and cervical radiculitis, with symptoms primarily on the right side. She saw an orthopedic spine surgeon, Dr. Agustin, who ordered a cervical spine MRI on July 17, 2025, which showed multilevel neuroforaminal stenosis. Dr. Agustin later administered a right shoulder injection around July 31 or , which she reported worked like magic and resolved her arm pain and allowed her to do activities around the house. However, the pain has since returned after she began manually lifting a heavy garage door. For pain management, she was started on an 18-day prednisone taper on July 19, 2025, which did not provide significant relief. She was previously on gabapentin but stopped it due to developing a blistering rash. Subsequently, she was prescribed pregabalin 150 mg at night, but after two doses, she experienced significant side effects including severe dizziness, nausea, a drug hangover sensation, and a subsequent migraine, leading her to discontinue the medication. Pain Description - Location: The patient reports persistent lower back pain, neck pain, upper back pain, knee pain, and right shoulder pain. - Quality: The upper back pain is described as a heavy weight rather than sharp pain, while the right shoulder is described as achy and sore . - Exacerbating Factors: Cold weather worsens her lower back and knee pain. - Lifting a heavy garage door exacerbated her right shoulder pain. - Relieving Factors: A right shoulder injection provided significant, albeit temporary, relief from what she described as suicidal pain at night . - Interference with Function: Pain previously interfered with her sleep. Results - Cervical Spine MRI (07/17/2025): Consistent with multilevel neuroforaminal stenosis. - Thoracic Spine MRI (12/04/2024): Consistent with diffuse degenerative changes, left paracentral and lateral disc protrusion at T5-T6, right lateral protrusion at T5-T6, and left lateral protrusion at T6-T7. - Lumbosacral Spine MRI (04/10/2025): Demonstrated grade 1 spondylolisthesis at L5-S1 with severe right and moderate left foraminal narrowing with impingement of the exiting right L5 nerve root. - The imaging also showed severe disc degeneration at L4-L5 with severe left and moderate right foraminal narrowing. - Shoulder X-ray: Performed by Dr. Agustin; results not discussed. [facility] Medical History Colonoscopy refused Lower back pain Hypothyroidism Hyperlipidemia Obesity due to excess calories Surgical History H/O wrist surgery Hx of tonsillectomy Hx of laparoscopic gastric banding Family History Father No problems noted. Mother Heart attack Dementia Diabetes Social History Household Members Other:: lives with 3 roomates, , on disability for lower back pain, Housing: House Patient Tobacco Use Status: Never used Tobacco e-Cigarette/Vaping Use: Never Used service: No Current occupational status: disabled Cognitive needs: No Hearing needs: No Vision needs: Yes Review of Systems Narrative Review of Systems - Neurological: Reports a history of radicular arm pain. - Reports dizziness, nausea, and subsequent migraines after taking pregabalin. - Integumentary: Reports a history of a blistering pimple-like rash with itching and dry skin after taking gabapentin. - Musculoskeletal: Reports persistent lower back pain, neck pain, and knee pain, especially in cold weather. - Reports current achiness and soreness in the right shoulder. - Reports upper back pain that feels like a heavy weight . - Constitutional: Reports a history of sleep disturbance due to pain. Physical Exam Exam Exam: Physical Exam Patient appears to be in no acute distress, ambulates with the walker. Gait was slightly antalgic on the right side. Lumbar extension was restricted. Cervical range of motion was restricted and side bending and rotation to the right. Spurling maneuver was positive on the right side. Lhermitte's sign was negative. Neurological examination of upper extremities was nonfocal. Patient demonstrated no upper motor neuron signs. Positive Neer signs with testing of the right shoulder. Normal range of motion. Negative drop-arm test. Vital Signs: BMI result Body Mass Index 39.2 Assessment & Plan Assessment & Plan (1) Cervical radiculitis: Code(s): M54.12 - Radiculopathy, cervical region Category: Medical (2) Lumbar radiculitis: Code(s): M54.16 - Radiculopathy, lumbar region Category: Medical (3) Spinal stenosis, lumbar region with neurogenic claudication: Code(s): M48.062 - Spinal stenosis, lumbar region with neurogenic claudication Category: Medical (4) Cervical spinal stenosis: Code(s): M48.02 - Spinal stenosis, cervical region Category: Medical Plan Pain Management - Analgesia: The patient reports that a right shoulder steroid injection provided significant pain relief, where a course of oral prednisone did not. - She reports her pain is no longer - Adverse Effects: The patient stopped gabapentin due to a blistering rash. - She stopped pregabalin 150 mg after two doses due to severe dizziness, nausea, a drug hangover sensation, and subsequent migraines. - Activities of Daily Living: Her pain previously interfered with sleep. - After the shoulder injection, she was able to resume activities around the house. - Her current pain is exacerbated by manually lifting a heavy garage door. - Affect: The patient previously experienced what she describes as suicidal pain at night . - Aberrant Drug Related Behaviors: None noted. Plan Patient was informed and verbally consented to the use of an ambient scribe for clinic note documentation during this visit. 1. Chronic Pain Syndrome The patient's multifactorial chronic pain is related to extensive degenerative disease of the cervical, thoracic, and lumbar spine, along with a possible shoulder component. A recent right shoulder injection provided significant relief, though this has waned. She has experienced intolerable side effects from both gabapentin and high-dose pregabalin. The plan is to restart pregabalin at a lower dose of 75 mg to be taken at bedtime to improve tolerability while managing nocturnal pain. The option of a cervical injection was discussed, but the patient prefers to defer this for now. The patient will follow up by phone to report her response to the lower dose. 2. Adverse Effect Of Therapeutic Drugs The patient experienced a blistering rash from gabapentin and significant central nervous system side effects from pregabalin 150 mg, including dizziness, nausea, and migraine. Gabapentin has been discontinued. Pregabalin will be trialed again at a reduced dose of 75 mg at bedtime. The patient has been instructed to hold on to her 150 mg supply for potential future dose titration and to monitor for any adverse reactions. 3. Cervical C7-T1 epidural injection could be considered. At this time I would not recommend any interventional procedures. Discussion Notes I discussed the patient's history of chronic pain and her intolerance to past medications. We reviewed her adverse reaction to gabapentin, which was a rash, and to pregabalin 150 mg, which caused severe dizziness, nausea, and migraines. I explained that the initial 150 mg dose was chosen based on her prior high dose of gabapentin. We discussed therapeutic options, including a cervical injection, which the patient preferred to wait on. We agreed to try a lower dose of pregabalin at 75 mg nightly. I instructed her to try the medication at bedtime to assess for side effects and to retain her 150 mg supply in case a dose increase is needed later. I requested she call the office in a couple of weeks to provide an update on her tolerance and response to the new dose. Patient Instructions - Take one capsule of pregabalin 75 mg by mouth every night at bedtime. - This is a lower dose to see if it helps your pain without causing side effects like dizziness or nausea. - Do not throw away your pregabalin 150 mg capsules. - Keep them in case we need to increase your dose in the future. - Avoid activities that make your pain worse, such as lifting the heavy garage door. - Please call our office in a couple of weeks to let us know how you are feeling on the new, lower dose of medication. Medications: New pregabalin 75 mg PO BEDTIME 30 caps 1RF Pain 30 days M48.02 - Spinal stenosis, cervical region, M48.062 - Spinal stenosis, lumbar region with neurogenic claudication, M54.12 - Radiculopathy, cervical region, M54.16 - Radiculopathy, lumbar region Coding Level of Care Code Est Pt Level 4 (86413) Add On Problem Visit Only Diagnoses Cervical radiculitis M54.12 Lumbar radiculitis M54.16 Spinal stenosis, lumbar region with neurogenic claudication M48.062 Cervical spinal stenosis M48.02
[2025-09-02 11:30] VITALS: BMI 39.2
== END 2025-09-02 11:56 | disposition home or self-care (01) ==
LOC: HO.HPHYS 11:15
PROVIDERS: PCP Internal Medicine; Visit Provider Physical Medicine & Rehabilitation
DX: M54.12 Radiculopathy, cervical region (principal); M54.16 Radiculopathy, lumbar region; M48.062 Spinal stenosis, lumbar region with neurogenic claudication; M48.02 Spinal stenosis, cervical region
CPT/HCPCS: 99214; G2211

== ENCOUNTER → 2025-09-02 11:14 | Outpatient (BNVA) | payer MEDICARE, SELFPAY | PROVIDERS: PCP Internal Medicine; Visit Provider Physical Medicine & Rehabilitation | DX: M48.02 Spinal stenosis, cervical region (principal); M48.062 Spinal stenosis, lumbar region with neurogenic claudication; M54.16 Radiculopathy, lumbar region; M54.12 Radiculopathy, cervical region; G89.4 Chronic pain syndrome; R21 Rash and other nonspecific skin eruption; R42 Dizziness and giddiness; R11.0 Nausea; T42.6X5A Adverse effect of other antiepileptic and sedative-hypnotic drugs, initial encounter | CPT/HCPCS: 99212 ==